=== PATIENT | male | born 1930 | race Caucasian/White ===

== ENCOUNTER 2017-04-22 07:00 | Inpatient (IN) ==
--- NOTE | 2017-04-15 08:19 | Cardiothoracic History & Phys ---
History of Present Illness Chief complaint: Weakness and shortness of breath History of present illness: Mr. Pérez is a 86 year old male who has known aortic valvular stenosis. He has been followed for some time by Dr. Wise and Dr. Wise is noted increasing symptoms of shortness of breath and decreasing exercise tolerance. He suspected that he was experiencing a worsening of his aortic stenosis and advised the patient to have cardiac catheterization. This was performed and revealed critical aortic stenosis with no significant occlusive coronary disease except in the distal right coronary artery in an area probably not suitable for bypass in this patient. Patient was recommended and referred for aortic valve replacement. He is to be admitted to the hospital 04/22/2017 for surgery 04/23/2017. Past medical history is significant for history of chronic atrial fibrillation and hypothyroidism. He also carries a diagnosis of obstructive sleep apnea. He has had previous appendectomy and lumbar surgery as well as a cholecystectomy and an arthroscopy of the knee. He has had cataract surgery and carpal tunnel repair. Family history is significant for history of cancer in his father and his mother has had diabetes type 2. Social history is significant in that the patient is a former smoker but quit smoking over 40 years ago. Review of systems is noncontributory to the present illness. Physical examination: Patient is a well-nourished white man who does appear to be chronically ill. Examination of head eyes ears nose and throat show the pupils are equal react to light and extraocular motions are intact. Examination of the oropharynx is benign. Examination of the neck shows bilateral transmitted bruits but there are no masses or thyromegaly. Examination of the chest is clear to percussion and auscultation. Examination of the heart reveals a harsh systolic murmur heard best along the left sternal border. Examination the abdomen is soft and nontender there are no masses or organomegaly. Termination extremities shows no cyanosis or edema. Neurological examination is grossly intact. Assessment: Severe aortic valvular stenosis and an 86-year-old man. Patient is in chronic atrial fibrillation. Plan: Aortic valve replacement with a bioprosthesis 04/23/2017. Home Medications Medication Instructions Recorded Confirmed Type Levothyroxine Tab [Synthroid Tab] 100 mcg PO DAILY@0700 04/26/15 03/16/17 History Warfarin [Coumadin] 5 mg PO DAILY@1800 04/26/15 03/16/17 History dilTIAZem HCl [Diltiazem ER (24 0.5 tablet PO BID 04/26/15 03/16/17 History hr)] Atorvastatin [Lipitor] 20 mg PO BEDTIME #30 tablet 04/30/15 03/16/17 Rx Bumetanide Tab [Bumex Tab] 0.5 mg PO DAILY 03/16/17 03/16/17 History Clopidogrel [Plavix] 75 mg PO DAILY 03/16/17 03/16/17 History Pantoprazole Tab [Protonix Tab] 40 mg PO DAILY #30 tablet 03/16/17 Rx Allergies Allergy/AdvReac Type Severity Reaction Status Date / Time No Known Allergies Allergy Unverified 04/26/15 10:10 Medical,Surgical,& Family Hx - Medical History Cardio: History of: Cardiac Dysrhythmia (a fib), Hypertension, Valvular Heart Disease Neurology: History of: Cerebrovascular Accident (embolus from A. fib. No residual symptoms.) No history of: Seizures Endocrine: History of: Diabetes Mellitus (NIDDM), Dyslipidemia, Thyroid Disorder Respiratory: History of: Obstructive Sleep Apnea (WEARS CPAP) Musculoskeletal: History of: Back/Neck Problems (BACK SURGERY) - Surgical History Cardiac Surgeries: Sugical HX of: Cardiac Catheterization (approximately 12 years ago. Was negative per patient) Abdominal Surgeries: Surgical HX of: Appendectomy, Cholecystectomy, Colonoscopy , EGD Orthopedic Surgeries: Surgical HX of;: Orthopedic Surgery (KNEE SCOPE), Spinal Surgery (TUMOR) - Family History Family History: Reports;: Family Cancer (BROTHER-LUNG), Family Diabetes (SISTER) , Family Heart Disease (MOTHER) Denies;: Family Anesthesia Reaction, Family Psychiatric Problems, Family Stroke - Social History Smoking Status: Former smoker
[~2017-04-22 07:00] MED LIST: DEXTROSE 50% 25 GM/50 ML VIAL IV PRN; GLUCAGON 1 MG VIAL IM PRN
[2017-04-22] MEDS ORDERED: GLUCAGON 1 MG VIAL IM PRN (08:19)
[2017-04-22] MEDS ORDERED: DEXTROSE 50% 25 GM/50 ML SYRINGE IV PRN (08:19)
[2017-04-22] MEDS: LEVOTHYROXINE 100 MCG TABLET PO SCH (09:50)
--- NOTE | 2017-04-22 10:15 | XRay Report ---
Exam: XR chest 2V Date: 04/22/2017 8:26 AM Indication: Coronary artery disease Comparison: 03/16/2017 Technical: PA lateral Findings: Mild cardiac prominence. Degenerative change present thoracic spine. Surgical clips present in the right upper quadrant. Underlying mild hyperinflation. No pneumothorax. Mediastinum is intact. No acute consolidating infiltrates or effusions present Impression: 1. Mild cardiac enlargement with ASVD 2. Previous cholecystectomy 3. No obvious consolidating infiltrates or effusions PROCEDURE INTERPRETED AT [facility] DEPARTMENT OF RADIOLOGY Final Report Signed by: Dr. Arun Christy
[2017-04-22 10:17] LABS: Basophils # 0.1 10*3/uL (0.0-0.2); Eosinophils # 0.1 10*3/uL (0.0-0.87); Eosinophils % 2.1 % (0.00-10.9); Hematocrit 46.5 VOL% (42.0-52.0); Hemoglobin 16.1 GM/DL (14.0-18.0); Immature Granulocytes % 0.2 %; Immature Granulocytes Absolute 0.01 #; Lymphocytes # 0.9 10*3/uL (1.4-4.0); Lymphocytes % 17.9 % (21.2-54.2); Mean Corpuscular HGB Conc 34.6 GM/DL (32-36); Mean Corpuscular Hemoglobin 32 PG (27-34); Mean Corpuscular Volume 91.5 FL (87-102); Mean Platelet Volume 11.5 FL (9.6-12.0); Monocytes # 0.4 10*3/uL (0.11-0.8); Monocytes % 7.3 % (1.7-12.7); Neutrophils # 3.7 10*3/uL (1.4-7.4); Neutrophils % 71.5 % (38.7-73.9); Platelet Count 151 T/CUMM (130-400); Red Blood Count 5.08 MC/CUMM (3.8-5.5); Red Cell Distribution Width 12.8 % (9.3-17.3); White Blood Count 5.2 T/CUMM (4-12)
--- NOTE | 2017-04-22 10:34 | EKG Report ---
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
[2017-04-22 10:48] LABS: Albumin 4.2 G/DL (3.4-5.0); Bilirubin,Total 0.8 MG/DL (0.2-1.0); Calcium 9.3 MG/DL (8.5-10.1); Osmolality,Calculated 284.1 MOS/KG (273-304); Potassium 4.4 MMOL/L (3.5-5.1); Total Protein 7.2 G/DL (6.4-8.3)
[2017-04-22] MEDS: BUMETANIDE 1 MG TABLET PO SCH (13:00)
[2017-04-22] MEDS: PANTOPRAZOLE 40 MG TABLET PO SCH (13:01)
[2017-04-22] MEDS: CHLORHEXIDINE 4% SOLN 118 ML BOTTLE TOP SCH ×2 (15:32→21:02)
[2017-04-22] MEDS ORDERED: ATORVASTATIN 20 MG TABLET PO SCH (21:00)
[2017-04-22] MEDS: CHLORHEXIDINE 0.12% ORAL RINSE 60 ML BOTTLE SWISH/SPIT SCH (21:07)
[2017-04-22 23:55] LABS: INR 1.1; PT Patient Result 11.2 SECS; Partial Thromboplastin Time 28.7 SECS (0-40)
[2017-04-23] MEDS ORDERED: FAMOTIDINE 20 MG TABLET PO STA (05:42)
[2017-04-23] MEDS ORDERED: LORazepam 1 MG TABLET PO STA (05:43)
[2017-04-23] MEDS ORDERED: FAMOTIDINE 20 MG TABLET ONE (05:45)
[2017-04-23] MEDS ORDERED: CEFUROXIME INJ 1,500 MG in SODIUM CHLORIDE 0.9% 100 ML IV ONE (06:00)
[2017-04-23] MEDS ORDERED: VANCOMYCIN 1,000 MG VIAL ONE ×3 (06:01→11:19)
[2017-04-23] MEDS ORDERED: PAPAVERINE 60 MG/2 ML VIAL ONE (06:01)
[2017-04-23 07:28] LABS: ABG Base Excess -0.4 MMOL/L (-2.5-2.5); ABG HCO3 24.1 MMOL/L (20-26); ABG Oxygen Saturation 99.6 % (95-100); ABG PCO2 36.7 MM HG (35-48); ABG PH 7.417 (7.35-7.45); ABG TCO2 20.3 MMOL/L (23-27); Glucose Heart Surgery 126 MG/DL (74-106); Hematocrit Heart Surgery 43.5 PERCENT (42-52); Hemoglobin Heart Surgery 14.2 G/DL (14.0-18.0); Ionized Calcium Arterial 1.13 MMOL/L (1.21-1.46); PCO2 Patient Temp Arterial 36.7 MMHG; PH Patient Temp Arterial 7.417; Patient Temperature 37 CELCIUS; Potassium Heart/CVR 3.6 MMOL/L (3.5-5.1); Sodium Heart/CVR 141 MMOL/L (135-145)
[2017-04-23 08:11] LABS: Apearance,Urine CLEAR (Clear); Bilirubin,Urine Negative (Negative); Blood, Urine Small mg/dL (Negative); Glucose,Urine (UA) Negative (Negative); Ketones,Urine Negative (Negative); Nitrite,Urine Negative (Negative); Protein,Urine Negative; RBC,Urine 3 /HPF (0-4); Squamous Epithelial Cell,Urine Occasional /HPF (0-10); Urine Color Yellow (Yellow); Urine Urobilinogen < 2.0 EU/DL (0.2-1.0); WBC,Urine 1 /HPF (0-6)
[2017-04-23 08:12] LABS: Hemoglobin Heart Surgery 10.2 G/DL (14.0-18.0); PCO2 Patient Temp Venous 30.3 MM HG; PH Patient Temp Venous 7.503; PO2 Patient Temp Venous 35.4 MM HG; Potassium Heart/CVR 4.1 MMOL/L (3.5-5.1); VBG Base Excess 0.4 MEQ/L (0-4); VBG HCO3 23.9 MEQ/L (24-28); VBG PCO2 34.6 MMHG (41-51); VBG PH 7.458; VBG PO2 43.8 MMHG (17-40)
--- NOTE | 2017-04-23 08:14 | Anesthesia Procedures ---
Anesthesia Procedures - Central Venous Insert Monitors Applied: pulse oximetry, EKG, BP cuff, oxygen via MSBT: pulse oximetry, EKG, BP cuff, oxygen via Procedure: after sterile technique was performed as outlined above, , ultrasound guidance was used to identify vessel, 1.5 % lidocaine used to numb skin, 18G introducer needle was passed into vessel under direct visualizatio, 16G introducer needle was passed into vessel under direct visualizatio, 7fr double lumen catheter was passed over guidewire without difficulty, triple lumen catheter was passed over guidewire without difficulty, catheter sutured into place and the ports flushed with NS/hepflush, sterlie dressing applied including the antibiotic disc, vital signs were stable throughout procedure, no apparent complications were noted, CXR to be obtained and read Ultrasound used: identify patency vessel, visualize needle entry to vessel Vein Cannulated: right internal juglar
--- NOTE | 2017-04-23 08:15 | Anesthesia Procedures ---
Anesthesia Procedures - Arterial Line Consent obtained arterial line: written consent Time out performed arterial line: Yes Size (Gauge): 20 Technique used arterial line: guide wire technique Post-Procedure: line sutured into place Patient tolerated procedure arterial line: well Site: right, radial (dr Nunn)
[2017-04-23 08:38] LABS: PCO2 Patient Temp Venous 27.4 MM HG; PH Patient Temp Venous 7.554; PO2 Patient Temp Venous 36.8 MM HG; Potassium Heart/CVR 3.9 MMOL/L (3.5-5.1); VBG Base Excess 1.7 MEQ/L (0-4); VBG HCO3 24.2 MEQ/L (24-28); VBG Oxygen Saturation 88.3 %; VBG PCO2 31.2 MMHG (41-51); VBG PH 7.508; VBG PO2 45.5 MMHG (17-40)
[2017-04-23] MEDS ORDERED: CARDIZEM 120 MG PO SCH (09:00)
[2017-04-23] MEDS ORDERED: NITROPRUSSIDE 50 MG/2 ML VIAL ONE (09:37)
[2017-04-23] MEDS ORDERED: INSULIN REGULAR DRIP 100 ML IV ONE (09:38)
[2017-04-23] MEDS ORDERED: ALBUMIN 5% 12.5 GM/250 ML VIAL IV ONE ×2 (09:38→17:07)
[2017-04-23] MEDS ORDERED: PHENYLEPHRINE DRIP 40 MG/250 ML PREMIX IV ONE (09:38)
[2017-04-23] MEDS ORDERED: POTASSIUM CHLORIDE RIDER 100 ML IV ONE (09:38)
[2017-04-23 09:40] LABS: ABG Base Excess 1.4 MMOL/L (-2.5-2.5); ABG HCO3 25.7 MMOL/L (20-26); ABG Oxygen Saturation 99.9 % (95-100); ABG PCO2 29.6 MM HG (35-48); ABG PH 7.512 (7.35-7.45); ABG TCO2 21.3 MMOL/L (23-27); Glucose Heart Surgery 208 MG/DL (74-106); Hematocrit Heart Surgery 32.3 PERCENT (42-52); Hemoglobin Heart Surgery 10.5 G/DL (14.0-18.0); Ionized Calcium Arterial 1.04 MMOL/L (1.21-1.46); PCO2 Patient Temp Arterial 29.6 MMHG; PH Patient Temp Arterial 7.512; Patient Temperature 37 CELCIUS; Potassium Heart/CVR 4.8 MMOL/L (3.5-5.1); Sodium Heart/CVR 137 MMOL/L (135-145)
[2017-04-23] MEDS ORDERED: MAGNESIUM SULFATE 1 GM/2 ML VIAL ONE (09:49)
[2017-04-23] MEDS ORDERED: HEPARIN 10,000 UNIT/10 ML VIAL ONE (09:49)
[2017-04-23] MEDS ORDERED: methylPREDNISolone SOD SUC 1,000 MG/8 ML VIAL ONE (09:49)
[2017-04-23] MEDS ORDERED: MANNITOL 12.5 GM/50 ML VIAL IV ONE (09:49)
[2017-04-23] MEDS ORDERED: ALBUMIN 25% 25 GM/100 ML VIAL IV ONE (09:49)
[2017-04-23] MEDS ORDERED: FUROSEMIDE 20 MG/2 ML VIAL ONE (09:49)
[2017-04-23] MEDS ORDERED: PROTAMINE SULFATE 250 MG/25 ML VIAL IV ONE (09:49)
[2017-04-23] MEDS ORDERED: POTASSIUM CHLORIDE 20 MEQ/10 ML VIAL ONE (09:49)
[2017-04-23] MEDS ORDERED: DEXTROSE 5% KCL 20 MEQ 20 MEQ/1,000 ML BAG IV ONE (09:49)
[2017-04-23] MEDS ORDERED: AMIODARONE 450 MG/9 ML VIAL IV ONE (10:03)
--- NOTE | 2017-04-23 10:27 | Anesthesia Post-Op ---
Anesthesia Post OP - Post Ansesthetic Evaluation Patient seen in post op: Yes Resp: within normal limits (pt remains sedate) CV: within normal limits Mental: within normal limits (pt remains sedate) Temp: within normal limits [id number]: within normal limits Nausea and Vomiting: within normal limits Pain: within normal limits
[2017-04-23] MEDS: LACTATED RINGERS 1,000 ML IV PRN ×6 (10:30→19:00)
[2017-04-23] MEDS ORDERED: SUFentanil 250 MCG/5 ML AMP ONE (10:30)
[2017-04-23] MEDS: SODIUM CHLORIDE 0.45% 1,000 ML IV SCH ×2 (10:30)
[2017-04-23] MEDS ORDERED: AMIODARONE INJ 450 MG in DEXTROSE 5% 241 ML IV SCH (10:30)
[2017-04-23] MEDS ORDERED: MIDAZOLAM 10 MG/2 ML VIAL ONE ×2 (10:31→12:41)
[2017-04-23] MEDS ORDERED: ePHEDrine 50 MG/ML AMP ONE (10:31)
[2017-04-23] MEDS ORDERED: PROTAMINE SULFATE 50 MG/5 ML VIAL IV ONE ×2 (10:36→10:45)
[2017-04-23] MEDS: DILTIAZEM HCL PO SCH ×2 (10:57→10:58)
[2017-04-23] MEDS: CHLORHEXIDINE 4% SOLN 118 ML BOTTLE TOP SCH (10:57)
[2017-04-23] MEDS: SODIUM CHLORIDE 0.9% 1,000 ML IV SCH (10:58)
[2017-04-23] MEDS: BUMETANIDE 1 MG TABLET PO SCH (10:58)
[2017-04-23] MEDS: LEVOTHYROXINE 100 MCG TABLET PO SCH (10:58)
[2017-04-23] MEDS: CHLORHEXIDINE 0.12% ORAL RINSE 60 ML BOTTLE SWISH/SPIT SCH ×2 (10:59→21:29)
[2017-04-23] MEDS: PANTOPRAZOLE 40 MG TABLET PO SCH (10:59)
[2017-04-23] MEDS ORDERED: MAGNESIUM SULF RIDER 2 GM in PREMIX 1 EACH IV PRN (11:07)
[2017-04-23] MEDS ORDERED: LACTATED RINGERS 250 ML IV PRN (11:07)
[2017-04-23] MEDS ORDERED: MIDAZOLAM 2 MG/2 ML VIAL IV PRN (11:07)
[2017-04-23] MEDS ORDERED: NITROPRUSSIDE 100 MG in DEXTROSE 5% 250 ML IV PRN (11:07)
[2017-04-23] MEDS ORDERED: CALCIUM CHLORIDE 1,000 MG/10 ML SYRINGE IV PRN (11:07)
[2017-04-23] MEDS ORDERED: ACETAMINOPHEN 650 MG SUPP RECTAL PRN (11:07)
[2017-04-23] MEDS ORDERED: VECURONIUM 10 MG VIAL IV PRN ×2 (11:07)
[2017-04-23] MEDS ORDERED: INSULIN REGULAR 100 UNIT/ML IV ONE (11:07)
[2017-04-23] MEDS ORDERED: ONDANSETRON 4 MG/2 ML VIAL IV PRN (11:07)
[2017-04-23] MEDS ORDERED: MORPHINE 10 MG/1 ML VIAL IV PRN (11:07)
[2017-04-23] MEDS ORDERED: MIDAZOLAM 10 MG/2 ML VIAL IV PRN (11:07)
[2017-04-23] MEDS ORDERED: DEXTROSE 50% 25 GM/50 ML SYRINGE IV PRN ×2 (11:07)
[2017-04-23] MEDS ORDERED: INSULIN REGULAR 100 UNIT/ML IV PRN (11:07)
[2017-04-23] MEDS ORDERED: PHENYLEPHRINE DRIP 40 MG/250 ML PREMIX IV PRN (11:07)
[2017-04-23] MEDS ORDERED: MAGNESIUM SULF RIDER 4 GM in PREMIX 1 EACH IV PRN (11:07)
[2017-04-23 11:12] LABS: ABG Base Excess 1.2 MMOL/L (-2.5-2.5); ABG HCO3 25.5 MMOL/L (20-26); ABG Oxygen Saturation 99.4 % (95-100); ABG PCO2 31.9 MM HG (35-48); ABG PH 7.485 (7.35-7.45); ABG TCO2 21.4 MMOL/L (23-27); Glucose Heart Surgery 211 MG/DL (74-106); Hematocrit Heart Surgery 34.7 PERCENT (42-52); Hemoglobin Heart Surgery 11.3 G/DL (14.0-18.0); Potassium Heart/CVR 3.8 MMOL/L (3.5-5.1)
[2017-04-23] MEDS ORDERED: TRANEXAMIC ACID 1,000 MG/10 ML VIAL IV ONE (11:27)
[2017-04-23 11:32] LABS: Albumin 3.7 G/DL (3.4-5.0); Bilirubin,Total 1.6 MG/DL (0.2-1.0); Calcium 8.8 MG/DL (8.5-10.1); Magnesium 2.4 MG/DL (1.8-2.4); Osmolality,Calculated 286.3 MOS/KG (273-304); Potassium 3.9 MMOL/L (3.5-5.1); Total Protein 5.9 G/DL (6.4-8.3)
[2017-04-23 11:44] LABS: ABG Base Excess 1.1 MMOL/L (-2.5-2.5); ABG HCO3 23.9 MMOL/L (20-26); ABG Oxygen Saturation 99.1 % (95-100); ABG PCO2 32.4 MM HG (35-48); ABG PH 7.486 (7.35-7.45); ABG TCO2 24.9 MMOL/L (23-27); Glucose Heart Surgery 197 MG/DL (74-106); Hemoglobin Heart Surgery 12.1 G/DL (14.0-18.0); Ionized Calcium Arterial 1.01 MMOL/L (1.21-1.46); PCO2 Patient Temp Arterial 32.4 MMHG; PH Patient Temp Arterial 7.486; Patient Temperature 37 CELCIUS; Potassium Heart/CVR 3.5 MMOL/L (3.5-5.1); Sodium Heart/CVR 138 MMOL/L (135-145)
[2017-04-23 11:55] LABS: CKMB % 4.5 %
[2017-04-23 12:04] LABS: Troponin I Only 2.47 NG/ML (0.00-0.045)
[2017-04-23 12:16] LABS: Basophils % 0.3 % (0.0-0.8); Eosinophils % 0.3 % (0.00-10.9); Hematocrit 31.6 VOL% (42.0-52.0); Immature Granulocytes Absolute 0.07 #; Lymphocytes # 0.5 10*3/uL (1.4-4.0); Lymphocytes % 6.4 % (21.2-54.2); Mean Corpuscular HGB Conc 34.8 GM/DL (32-36); Mean Corpuscular Hemoglobin 32 PG (27-34); Mean Corpuscular Volume 91.3 FL (87-102); Mean Platelet Volume 10.8 FL (9.6-12.0); Monocytes # 0.3 10*3/uL (0.11-0.8); Monocytes % 3.8 % (1.7-12.7); Neutrophils # 6.4 10*3/uL (1.4-7.4); Neutrophils % 88.2 % (38.7-73.9); Platelet Count 142 T/CUMM (130-400); Red Cell Distribution Width 12.8 % (9.3-17.3)
[2017-04-23 12:24] LABS: White Blood Count 7.3 T/CUMM (4-12)
[2017-04-23 12:25] LABS: Red Blood Count 3.46 MC/CUMM (3.8-5.5)
[2017-04-23 12:39] LABS: INR 1.2; PT Patient Result 13.1 SECS
[2017-04-23] MEDS ORDERED: SEVOFLURANE 1 UNIT/15 MINUTE INH ONE (12:40)
--- NOTE | 2017-04-23 12:41 | Operative Note ---
Date of procedure: 04/23/17 Post-op diagnosis: same (Postoperative hemorrhage) Procedure: Patient was brought to the operating room placed on the operating table in supine position. After satisfactory induction of general anesthesia the chest and abdomen were prepped and draped in sterile fashion. Previous sternotomy incision was reopened and the sternal wires were removed. The operative field was inspected for bleeding points and tumor found in the proximal aortotomy site. These were closed with mattress sutures of 4-0 Prolene. Following this the operative field was irrigated with saline and then the operative field was once again inspected for hemostasis and this was considered adequate the incision was closed in usual fashion with stainless steel wire the sternum 0 Monopril in the presternal fascia and 3-0 subcuticular Monocryl. 2 chest tubes were left in the anterior mediastinum and brought out through separate stab incisions. Sterile dressings were applied the patient was returned to recovery in satisfactory condition. Surgeon / Physician: Farhat Rodrigez Condition: stable Disposition: ICU Results - Labs CBC & BMP: 04/23/17 10:33 04/23/17 11:18 Discharge Plan - Discharge Medications No Action Warfarin [Coumadin] 5 mg PO DAILY@1800 Levothyroxine Tab [Synthroid Tab] 100 mcg PO DAILY@0700 Atorvastatin [Lipitor] 20 mg PO BEDTIME #30 tablet Clopidogrel [Plavix] 75 mg PO DAILY Bumetanide Tab [Bumex Tab] 0.5 mg PO DAILY dilTIAZem HCl [Cardizem LA] 60 mg PO BID Pantoprazole Tab [Protonix Tab] 40 mg PO DAILY #30 tablet - Follow Up or Referral - Forms/Instructions
[2017-04-23 12:53] LABS: ABG HCO3 24.4 MMOL/L (20-26); ABG Oxygen Saturation 99.3 % (95-100); ABG PCO2 29.9 MM HG (35-48); ABG PH 7.486 (7.35-7.45); ABG TCO2 20.1 MMOL/L (23-27); Glucose Heart Surgery 218 MG/DL (74-106); Hematocrit Heart Surgery 34.1 PERCENT (42-52); Potassium Heart/CVR 3.3 MMOL/L (3.5-5.1)
[2017-04-23] MEDS: POTASSIUM CHLORIDE RIDER 20 MEQ in PREMIX 1 EACH IV PRN ×7 (13:01→22:52)
[2017-04-23] MEDS: INSULIN REGULAR DRIP 100 ML IV SCH (13:01)
[2017-04-23] MEDS: KETOROLAC 15 MG/1 ML VIAL IV SCH ×3 (13:19→22:53)
[2017-04-23] MEDS: ALBUMIN 5% 12.5 GM in PREMIX 1 EACH IV PRN ×6 (14:08→17:31)
[2017-04-23 14:19] LABS: ABG Base Excess -0.1 MMOL/L (-2.5-2.5); ABG HCO3 24.3 MMOL/L (20-26); ABG Oxygen Saturation 99.4 % (95-100); ABG PCO2 29.5 MM HG (35-48); ABG TCO2 20.3 MMOL/L (23-27); Glucose Heart Surgery 198 MG/DL (74-106); Hematocrit Heart Surgery 31.2 PERCENT (42-52); Hemoglobin Heart Surgery 10.1 G/DL (14.0-18.0); Potassium Heart/CVR 3.7 MMOL/L (3.5-5.1)
--- NOTE | 2017-04-23 14:36 | Operative Note ---
Pre-op diagnosis: Aortic valvular stenosis Post-op diagnosis: same Procedure: Procedure: Aortic valve replacement with a 23 mm pericardial prosthesis. Findings: Patient is an 86-year-old man who has chronic atrial fibrillation who has developed decreasing exercise tolerance over the past year and a half. He was found to have significant aortic valvular stenosis which progressed during that period of time and he has been referred for aortic valve replacement. At the time of surgery a severely calcified aortic valve was encountered and removed and the valve was replaced with a 23 mm pericardial prosthesis. Patient tolerated procedure well and was returned to recovery in satisfactory condition. Procedure: Patient brought to the operating room placed on the operating table in supine position. After satisfactory induction of general anesthesia the chest abdomen and legs were prepped and draped in sterile fashion. Sternotomy incision was made and carried down to the level of the sternum which was divided and the heart was suspended in a pericardial cradle. Patient was prepared for cardiopulmonary bypass with systemic heparinization and cannulation of the ascending aorta and right atrium. Cardiopulmonary bypass was begun and the aorta was crossclamped and the heart arrested with cardioplegia solution injected into the aortic root. The aorta was opened through transverse aortotomy in the supravalvular position and aortic valve was exposed with the above-noted findings. The valve was removed and the annulus ringed with horizontal mattress sutures of 3-0 Ethibond. These were passed through the sewing ring of a 23 mm pericardial prosthesis which was lowered and tied into place. The incision was closed with 3-0 Prolene in the aorta. The aorta was unclamped reestablishing cardiac action and the patient was weaned from cardiopulmonary bypass without difficulty. Heparin effect was reversed with protamine and decannulation carried out with a defects in the ascending aorta and right atrium closed with 3-0 Prolene. The operative field was inspected for hemostasis and when this was considered adequate the incision was closed with interrupted stainless steel wire and the sternum and 0 Monopril in the presternal fascia. Skin was closed with 3-0 subcuticular Monocryl. 2 chest tubes were left in the anterior mediastinum and brought out through separate stab incisions. Sterile dressings were applied and the patient was returned to recovery in satisfactory condition. Anesthesia: MONIEA Surgeon / Physician: Farhat Rodrigez Estimated blood loss: other (Unable to determine because of cardiopulmonary bypass) Condition: stable Disposition: ICU Results - Labs CBC & BMP: 04/23/17 11:39 04/23/17 11:18 Discharge Plan - Discharge Medications No Action Warfarin [Coumadin] 5 mg PO DAILY@1800 Levothyroxine Tab [Synthroid Tab] 100 mcg PO DAILY@0700 Atorvastatin [Lipitor] 20 mg PO BEDTIME #30 tablet Clopidogrel [Plavix] 75 mg PO DAILY Bumetanide Tab [Bumex Tab] 0.5 mg PO DAILY dilTIAZem HCl [Cardizem LA] 60 mg PO BID Pantoprazole Tab [Protonix Tab] 40 mg PO DAILY #30 tablet - Follow Up or Referral - Forms/Instructions
--- NOTE | 2017-04-23 14:52 | XRay Report ---
Portable chest Date: 04/23/2017 Clinical history: Line placement Comparison: 04/22/2017 Technique: Portable AP sitting chest Findings: The heart is minimally enlarged with interval median sternotomy and cardiac valve replacement. Endotracheal tube, nasogastric tube, mediastinal chest tubes, right IJ CVP line, and right subclavian [place] catheter are in satisfactory position. No pneumothorax with minimal atelectasis. Impression: Status post median sternotomy and cardiac valve replacement. Progressive atelectasis in the lungs with no pneumothorax. The supportive devices are in satisfactory position. PROCEDURE INTERPRETED AT [facility] DEPARTMENT OF RADIOLOGY Final Report Signed by: Dr. Harika Watts
[2017-04-23] MEDS: DOBUTamine 500 MG/250 ML PREMIX IV SCH (15:16)
--- NOTE | 2017-04-23 15:40 | Anesthesia Post-Op ---
Anesthesia Post OP - Post Ansesthetic Evaluation Patient seen in post op: Yes Resp: within normal limits (pt remains ventilated) CV: within normal limits Mental: within normal limits (pt remains sedate) Temp: within normal limits [id number]: within normal limits Nausea and Vomiting: within normal limits Pain: within normal limits
[2017-04-23] MEDS: AMIODARONE INJ 450 MG in DEXTROSE 5% 241 ML IV SCH ×2 (16:06→22:06)
[2017-04-23 16:50] LABS: ABG Base Excess -1.6 MMOL/L (-2.5-2.5); ABG HCO3 23.1 MMOL/L (20-26); ABG Oxygen Saturation 98.6 % (95-100); ABG PCO2 32.9 MM HG (35-48); ABG PH 7.432 (7.35-7.45); ABG TCO2 19.7 MMOL/L (23-27); Glucose Heart Surgery 156 MG/DL (74-106); Hematocrit Heart Surgery 33.6 PERCENT (42-52); Hemoglobin Heart Surgery 10.9 G/DL (14.0-18.0); Potassium Heart/CVR 3.8 MMOL/L (3.5-5.1)
[2017-04-23] MEDS: POTASSIUM CHLORIDE RIDER 10 MEQ in PREMIX 1 EACH IV PRN ×2 (18:10→20:50)
[2017-04-23] MEDS: CEFUROXIME INJ 1,500 MG in SODIUM CHLORIDE 0.9% 100 ML IV SCH (18:11)
[2017-04-23 20:02] LABS: ABG HCO3 23.6 MMOL/L (20-26); ABG Oxygen Saturation 98.4 % (95-100); ABG PCO2 31.7 MM HG (35-48); ABG PH 7.455 (7.35-7.45); ABG TCO2 20.4 MMOL/L (23-27); Glucose Heart Surgery 116 MG/DL (74-106); Hematocrit Heart Surgery 28.6 PERCENT (42-52); Hemoglobin Heart Surgery 9.2 G/DL (14.0-18.0); Potassium Heart/CVR 3.9 MMOL/L (3.5-5.1)
[2017-04-23 21:02] LABS: CKMB % 3.8 %
[2017-04-23 21:24] LABS: Troponin I Only 3.75 NG/ML (0.00-0.045)
[2017-04-23 22:32] LABS: ABG HCO3 23.6 MMOL/L (20-26); ABG Oxygen Saturation 98.5 % (95-100); ABG PCO2 30.7 MM HG (35-48); ABG PH 7.465 (7.35-7.45); ABG TCO2 20.3 MMOL/L (23-27); Glucose Heart Surgery 100 MG/DL (74-106); Hematocrit Heart Surgery 28.1 PERCENT (42-52); Hemoglobin Heart Surgery 9.1 G/DL (14.0-18.0); Potassium Heart/CVR 4.2 MMOL/L (3.5-5.1)
[2017-04-23] MEDS ORDERED: FUROSEMIDE 40 MG/4 ML VIAL IV ONE (22:57)
[2017-04-23] MEDS: MORPHINE 2 MG/1 ML SYRINGE IV PRN (23:22)
[2017-04-24] MEDS: LACTATED RINGERS 1,000 ML IV PRN (03:00)
[2017-04-24 03:07] LABS: ABG Base Excess -1.1 MMOL/L (-2.5-2.5); ABG HCO3 21.2 MMOL/L (20-26); ABG Oxygen Saturation 96.7 % (95-100); ABG PCO2 28.1 MM HG (35-48); ABG PH 7.496 (7.35-7.45); ABG PO2 87.3 MM HG (80-95); ABG TCO2 22.1 MMOL/L (23-27); Glucose Heart Surgery 114 MG/DL (74-106); Hemoglobin Heart Surgery 10.8 G/DL (14.0-18.0); Potassium Heart/CVR 4.2 MMOL/L (3.5-5.1)
[2017-04-24 03:18] LABS: Basophils % 0.1 % (0.0-0.8); Hematocrit 28.8 VOL% (42.0-52.0); Hemoglobin 10.4 GM/DL (14.0-18.0); Immature Granulocytes % 0.8 %; Immature Granulocytes Absolute 0.09 #; Lymphocytes # 0.4 10*3/uL (1.4-4.0); Lymphocytes % 3.3 % (21.2-54.2); Mean Corpuscular HGB Conc 36.1 GM/DL (32-36); Mean Corpuscular Hemoglobin 31 PG (27-34); Mean Corpuscular Volume 86.5 FL (87-102); Mean Platelet Volume 11.6 FL (9.6-12.0); Monocytes # 0.2 10*3/uL (0.11-0.8); Neutrophils # 10.4 10*3/uL (1.4-7.4); Neutrophils % 93.8 % (38.7-73.9); Red Blood Count 3.33 MC/CUMM (3.8-5.5); White Blood Count 11.1 T/CUMM (4-12)
[2017-04-24 03:19] LABS: Platelet Count 101 T/CUMM (130-400)
[2017-04-24] MEDS: POTASSIUM CHLORIDE RIDER 20 MEQ in PREMIX 1 EACH IV PRN ×2 (03:19→07:39)
[2017-04-24 03:41] LABS: Band Neutrophils 6 % (0-10); Lymphocytes 4 % (20-55); Segmented Neutrophils 88 % (50-85)
[2017-04-24 03:43] LABS: Platelet Estimate Decreased; Total Cells Counted 100
[2017-04-24] MEDS: ALBUMIN 5% 12.5 GM in PREMIX 1 EACH IV PRN (03:50)
[2017-04-24 03:58] LABS: Albumin 3.8 G/DL (3.4-5.0); Bilirubin,Direct 0.22 MG/DL (0.0-0.20); Calcium 8.4 MG/DL (8.5-10.1); Magnesium 1.8 MG/DL (1.8-2.4); Osmolality,Calculated 282.3 MOS/KG (273-304); Potassium 4.4 MMOL/L (3.5-5.1); Total Protein 5.3 G/DL (6.4-8.3)
[2017-04-24 04:00] LABS: CKMB % 3.3 %
[2017-04-24 04:04] LABS: Troponin I Only 1.93 NG/ML (0.00-0.045)
[2017-04-24] MEDS: KETOROLAC 15 MG/1 ML VIAL IV SCH ×3 (05:00→16:37)
[2017-04-24] MEDS: NITROGLYCERIN DRIP 50 MG/250 ML BOTTLE IV SCH (06:07)
[2017-04-24] MEDS: CEFUROXIME INJ 1,500 MG in SODIUM CHLORIDE 0.9% 100 ML IV SCH ×2 (06:11→18:06)
[2017-04-24 07:26] LABS: ABG Base Excess -0.9 MMOL/L (-2.5-2.5); ABG HCO3 23.7 MMOL/L (20-26); ABG Oxygen Saturation 97.3 % (95-100); ABG PCO2 31.5 MM HG (35-48); ABG PH 7.459 (7.35-7.45); ABG PO2 83.9 MM HG (80-95); ABG TCO2 20.4 MMOL/L (23-27); Glucose Heart Surgery 126 MG/DL (74-106); Hematocrit Heart Surgery 29.3 PERCENT (42-52); Hemoglobin Heart Surgery 9.5 G/DL (14.0-18.0); Potassium Heart/CVR 4.4 MMOL/L (3.5-5.1)
--- NOTE | 2017-04-24 08:07 | EKG Report ---
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
--- NOTE | 2017-04-24 08:20 | XRay Report ---
XR chest 1V portable Indication: Airleak noted in chest tube Comparison: Chest x-ray dated April 23, 2017 Technique: Single frontal view of the chest. Findings: Lines and tubes appear grossly unchanged. Stable cardiomegaly status post sternotomy. No new focal consolidation or pneumothorax. Visualized osseous and surrounding soft tissue structures appear grossly unchanged. IMPRESSION: No adverse interval change. PROCEDURE INTERPRETED AT [facility] DEPARTMENT OF RADIOLOGY Final Report Signed by: Dr Alexx Villar
--- NOTE | 2017-04-24 08:50 | Cardiothoracic Progress Note ---
Cardiothoracic Subjective Interval history: Patient is intubated on the ventilator. He is beginning to awaken and opens his eyes to his name and will move all extremities but not to command at this point. Vital signs have been stable through the night and his cardiac output is 4 L/min this morning with minimal enzyme elevation consistent with postoperative day 1. Blood pressure and heart rate have been stable although he remains in atrial fibrillation. Arterial blood gases are satisfactory on the ventilator and will permit weaning when his level of wakefulness improves. Chest tube drainage is minimal but I am going to leave the chest tubes for now as long as he is still on the ventilator. Urine output has been good and his creatinine is 1.4 which is the same as preop. Overall his progress is satisfactory although he is weaning process may be somewhat slow and I have discussed with his the possibility that he may remain on the ventilator through the day and tonight and it may be tomorrow morning before he is ready to be extubated. Exam (Progress Note) - Constitutional Vitals: Period Temp Pulse Resp BP Sys/Wang Pulse Ox Last 24 Hr 93.9 F-98.4 F 60-107 10-36 84-194/36-106 97-100 Result/EKG - Labs CBC & BMP: 04/24/17 02:50 04/24/17 02:50 Labs: Laboratory Results - last 24 hr 04/22/17 04/23/17 04/23/17 10:03 09:37 09:42 WBC RBC Hgb Hct MCV MCH MCHC RDW Plt Count [employer] MPV Neut % (Auto) Lymph % (Auto) [place] % (Auto) Eos % (Auto) Baso % (Auto) Neut # (Auto) Lymph # (Auto) [place] # (Auto) Eos # (Auto) Baso # (Auto) Total Counted Immature Gran % Nucleated RBC % Immature Gran # Segmented Neutrophils Band Neutrophils Lymphocytes Monocytes Nucleated RBCs # Platelet Estimate Immature Plt Fraction INR PT Patient/Control Mix Circ Anticoag PTT Patient Temperature 37 ABG pH 7.512 H ABG pH at Pt Temp 7.512 ABG pCO2 29.6 L ABG pCO2 at Pt Temp 29.6 ABG pO2 427.0 H ABG pO2 at Pt Temp 427.0 ABG HCO3 25.7 ABG Total CO2 21.3 L ABG O2 Saturation 99.9 ABG Base Excess 1.4 ABG Sodium 137 Hemoglobin 10.5 L D Hematocrit 32.3 L Potassium 4.8 Glucose 208 H Ionized Calcium 1.04 L Sodium Chloride Carbon Dioxide Anion Gap BUN Creatinine GFR Calculation BUN/Creatinine Ratio Calculated Osmolality Calcium Magnesium Total Bilirubin Direct Bilirubin AST ALT Alkaline Phosphatase Total Creatine Kinase CK-MB (CK-2) CK and CKMB Interp Troponin I Total Protein Albumin Globulin Albumin/Globulin Ratio Blood Type A POSITIVE Antibody Screen Negative Crossmatch See Detail 04/23/17 04/23/17 04/23/17 10:33 10:33 11:12 WBC 7.3 D RBC 3.46 L D Hgb 11.0 L D Hct 31.6 L MCV 91.3 MCH 32 MCHC 34.8 RDW 12.8 Plt Count 142 MPV 10.8 Neut % (Auto) 88.2 H Lymph % (Auto) 6.4 L [place] % (Auto) 3.8 Eos % (Auto) 0.3 Baso % (Auto) 0.3 Neut # (Auto) 6.4 Lymph # (Auto) 0.5 L [place] # (Auto) 0.3 Eos # (Auto) 0.0 Baso # (Auto) 0.0 Total Counted Immature Gran % 1.0 Nucleated RBC % 0.0 Immature Gran # 0.07 Segmented Neutrophils Band Neutrophils Lymphocytes Monocytes Nucleated RBCs # 0.00 Platelet Estimate Immature Plt Fraction 0.0 INR 1.2 PT Patient/Control Mix 13.1 Circ Anticoag PTT 31.0 Patient Temperature ABG pH 7.485 H ABG pH at Pt Temp ABG pCO2 31.9 L ABG pCO2 at Pt Temp ABG pO2 171.0 H ABG pO2 at Pt Temp ABG HCO3 25.5 ABG Total CO2 21.4 L ABG O2 Saturation 99.4 ABG Base Excess 1.2 ABG Sodium Hemoglobin 11.3 L Hematocrit 34.7 L Potassium 3.8 Glucose 211 H Ionized Calcium Sodium Chloride Carbon Dioxide Anion Gap BUN Creatinine GFR Calculation BUN/Creatinine Ratio Calculated Osmolality Calcium Magnesium Total Bilirubin Direct Bilirubin AST ALT Alkaline Phosphatase Total Creatine Kinase CK-MB (CK-2) CK and CKMB Interp Troponin I Total Protein Albumin Globulin Albumin/Globulin Ratio Blood Type Antibody Screen Crossmatch 04/23/17 04/23/17 04/23/17 11:18 11:18 11:39 WBC RBC Hgb Hct MCV MCH MCHC RDW Plt Count [employer] MPV Neut % (Auto) Lymph % (Auto) [place] % (Auto) Eos % (Auto) Baso % (Auto) Neut # (Auto) Lymph # (Auto) [place] # (Auto) Eos # (Auto) Baso # (Auto) Total Counted Immature Gran % Nucleated RBC % Immature Gran # Segmented Neutrophils Band Neutrophils Lymphocytes Monocytes Nucleated RBCs # Platelet Estimate Immature Plt Fraction INR PT Patient/Control Mix Circ Anticoag PTT Patient Temperature ABG pH ABG pH at Pt Temp ABG pCO2 ABG pCO2 at Pt Temp ABG pO2 ABG pO2 at Pt Temp ABG HCO3 ABG Total CO2 ABG O2 Saturation ABG Base Excess ABG Sodium Hemoglobin Hematocrit Potassium 3.9 Glucose 203 H Ionized Calcium Sodium 141 Chloride 104 Carbon Dioxide 26 Anion Gap 14.9 BUN 13 Creatinine 1.30 GFR Calculation 55 BUN/Creatinine Ratio 10.00 Calculated Osmolality 286.3 Calcium 8.8 Magnesium 2.4 Total Bilirubin 1.60 H Direct Bilirubin AST 37 ALT 28 Alkaline Phosphatase 58 Total Creatine Kinase 352 H CK-MB (CK-2) 15.9 H CK and CKMB Interp 4.5 Troponin I 2.470 H Total Protein 5.9 L Albumin 3.7 Globulin 2.2 L Albumin/Globulin Ratio 1.6 Blood Type Antibody Screen Crossmatch 04/23/17 04/23/17 04/23/17 11:42 12:54 14:10 WBC RBC Hgb Hct MCV MCH MCHC RDW Plt Count MPV Neut % (Auto) Lymph % (Auto) [place] % (Auto) Eos % (Auto) Baso % (Auto) Neut # (Auto) Lymph # (Auto) [place] # (Auto) Eos # (Auto) Baso # (Auto) Total Counted Immature Gran % Nucleated RBC % Immature Gran # Segmented Neutrophils Band Neutrophils Lymphocytes Monocytes Nucleated RBCs # Platelet Estimate Immature Plt Fraction INR PT Patient/Control Mix Circ Anticoag PTT Patient Temperature 37 ABG pH 7.486 H 7.486 H 7.490 H ABG pH at Pt Temp 7.486 ABG pCO2 32.4 L 29.9 L 29.5 L ABG pCO2 at Pt Temp 32.4 ABG pO2 423.0 H 160.0 H 148.0 H ABG pO2 at Pt Temp 423.0 ABG HCO3 23.9 24.4 24.3 ABG Total CO2 24.9 20.1 L 20.3 L ABG O2 Saturation 99.1 99.3 99.4 ABG Base Excess 1.1 0.0 -0.1 ABG Sodium 138 Hemoglobin 12.1 L 11.0 L 10.1 L Hematocrit 36.0 L 34.1 L 31.2 L Potassium 3.5 3.3 L 3.7 Glucose 197 H 218 H 198 H Ionized Calcium 1.01 L Sodium Chloride Carbon Dioxide Anion Gap BUN Creatinine GFR Calculation BUN/Creatinine Ratio Calculated Osmolality Calcium Magnesium Total Bilirubin Direct Bilirubin AST ALT Alkaline Phosphatase Total Creatine Kinase CK-MB (CK-2) CK and CKMB Interp Troponin I Total Protein Albumin Globulin Albumin/Globulin Ratio Blood Type Antibody Screen Crossmatch 04/23/17 04/23/17 04/23/17 16:33 19:55 19:55 WBC RBC Hgb Hct MCV MCH MCHC RDW Plt Count MPV Neut % (Auto) Lymph % (Auto) [place] % (Auto) Eos % (Auto) Baso % (Auto) Neut # (Auto) Lymph # (Auto) [place] # (Auto) Eos # (Auto) Baso # (Auto) Total Counted Immature Gran % Nucleated RBC % Immature Gran # Segmented Neutrophils Band Neutrophils Lymphocytes Monocytes Nucleated RBCs # Platelet Estimate Immature Plt Fraction INR PT Patient/Control Mix Circ Anticoag PTT Patient Temperature ABG pH 7.432 7.455 H ABG pH at Pt Temp ABG pCO2 32.9 L 31.7 L ABG pCO2 at Pt Temp ABG pO2 110.0 H 101.0 H ABG pO2 at Pt Temp ABG HCO3 23.1 23.6 ABG Total CO2 19.7 L 20.4 L ABG O2 Saturation 98.6 98.4 ABG Base Excess -1.6 -1.0 ABG Sodium Hemoglobin 10.9 L 9.2 L Hematocrit 33.6 L 28.6 L Potassium 3.8 3.9 Glucose 156 H 116 H Ionized Calcium Sodium Chloride Carbon Dioxide Anion Gap BUN Creatinine GFR Calculation BUN/Creatinine Ratio Calculated Osmolality Calcium Magnesium Total Bilirubin Direct Bilirubin AST ALT Alkaline Phosphatase Total Creatine Kinase 312 H CK-MB (CK-2) 12.0 H CK and CKMB Interp 3.8 Troponin I 3.750 H D Total Protein Albumin Globulin Albumin/Globulin Ratio Blood Type Antibody Screen Crossmatch 04/23/17 04/24/17 04/24/17 22:25 02:50 02:50 WBC 11.1 D RBC 3.33 L Hgb 10.4 L Hct 28.8 L MCV 86.5 L MCH 31 MCHC 36.1 H RDW 14.0 Plt Count 101 L D MPV 11.6 Neut % (Auto) 93.8 H Lymph % (Auto) 3.3 L Cloud % (Auto) 2.0 Eos % (Auto) 0.0 Baso % (Auto) 0.1 Neut # (Auto) 10.4 H Lymph # (Auto) 0.4 L [place] # (Auto) 0.2 Eos # (Auto) 0.0 Baso # (Auto) 0.0 Total Counted 100 Immature Gran % 0.8 Nucleated RBC % 0.0 Immature Gran # 0.09 Segmented Neutrophils 88 H Band Neutrophils 6 Lymphocytes 4 L Monocytes 2 Nucleated RBCs # 0.00 Platelet Estimate Decreased Immature Plt Fraction 7.2 H INR PT Patient/Control Mix Circ Anticoag PTT Patient Temperature ABG pH 7.465 H ABG pH at Pt Temp ABG pCO2 30.7 L ABG pCO2 at Pt Temp ABG pO2 101.0 H ABG pO2 at Pt Temp ABG HCO3 23.6 ABG Total CO2 20.3 L ABG O2 Saturation 98.5 ABG Base Excess -1.0 ABG Sodium Hemoglobin 9.1 L Hematocrit 28.1 L Potassium 4.2 Glucose 100 Ionized Calcium Sodium Chloride Carbon Dioxide Anion Gap BUN Creatinine GFR Calculation BUN/Creatinine Ratio Calculated Osmolality Calcium Magnesium Total Bilirubin Direct Bilirubin AST ALT Alkaline Phosphatase Total Creatine Kinase 266 CK-MB (CK-2) 8.9 H CK and CKMB Interp 3.3 Troponin I 1.930 H D Total Protein Albumin Globulin Albumin/Globulin Ratio Blood Type Antibody Screen Crossmatch 04/24/17 04/24/17 04/24/17 02:50 02:50 07:13 WBC RBC Hgb Hct MCV MCH MCHC RDW Plt Count MPV Neut % (Auto) Lymph % (Auto) [place] % (Auto) Eos % (Auto) Baso % (Auto) Neut # (Auto) Lymph # (Auto) [place] # (Auto) Eos # (Auto) Baso # (Auto) Total Counted Immature Gran % Nucleated RBC % Immature Gran # Segmented Neutrophils Band Neutrophils Lymphocytes Monocytes Nucleated RBCs # Platelet Estimate Immature Plt Fraction INR PT Patient/Control Mix Circ Anticoag PTT Patient Temperature ABG pH 7.496 H 7.459 H ABG pH at Pt Temp ABG pCO2 28.1 L 31.5 L ABG pCO2 at Pt Temp ABG pO2 87.3 83.9 ABG pO2 at Pt Temp ABG HCO3 21.2 23.7 ABG Total CO2 22.1 L 20.4 L ABG O2 Saturation 96.7 97.3 ABG Base Excess -1.1 -0.9 ABG Sodium Hemoglobin 10.8 L 9.5 L Hematocrit 32.0 L 29.3 L Potassium 4.4 4.2 4.4 Glucose 118 H 114 H 126 H Ionized Calcium Sodium 141 Chloride 109 H Carbon Dioxide 26 Anion Gap 10.4 BUN 15 Creatinine 1.40 H GFR Calculation 50 BUN/Creatinine Ratio 10.00 Calculated Osmolality 282.3 Calcium 8.4 L Magnesium 1.8 Total Bilirubin 2.00 H Direct Bilirubin 0.220 H AST 40 H ALT 35 Alkaline Phosphatase 36 L Total Creatine Kinase CK-MB (CK-2) CK and CKMB Interp Troponin I Total Protein 5.3 L Albumin 3.8 Globulin 1.5 L Albumin/Globulin Ratio 2.5 H Blood Type Antibody Screen Crossmatch Quality Measures - VTE Contraindication to Pharmacological VTE Prophylaxis: High Risk of Bleeding - Stroke Symptom Onset Unknown: No
[2017-04-24] MEDS: DILTIAZEM 60 MG TABLET PO SCH ×2 (09:04→20:13)
[2017-04-24] MEDS: CHLORHEXIDINE 0.12% ORAL RINSE 60 ML BOTTLE SWISH/SPIT SCH ×2 (09:05→20:13)
[2017-04-24 09:53] LABS: ABG Base Excess -1.1 MMOL/L (-2.5-2.5); ABG HCO3 23.5 MMOL/L (20-26); ABG Oxygen Saturation 97.2 % (95-100); ABG PCO2 30.7 MM HG (35-48); ABG PH 7.464 (7.35-7.45); ABG PO2 82.5 MM HG (80-95); ABG TCO2 20.1 MMOL/L (23-27); Glucose Heart Surgery 135 MG/DL (74-106); Hematocrit Heart Surgery 29.4 PERCENT (42-52); Hemoglobin Heart Surgery 9.5 G/DL (14.0-18.0); Potassium Heart/CVR 4.8 MMOL/L (3.5-5.1)
[2017-04-24] MEDS: AMIODARONE INJ 450 MG in DEXTROSE 5% 241 ML IV SCH (09:53)
[2017-04-24] MEDS ORDERED: FUROSEMIDE 40 MG/4 ML VIAL IV ONE ×2 (10:28→18:37)
[2017-04-24] MEDS: INSULIN REGULAR DRIP 100 ML IV SCH (11:35)
[2017-04-24 13:06] LABS: ABG Base Excess -2.7 MMOL/L (-2.5-2.5); ABG HCO3 22.2 MMOL/L (20-26); ABG PCO2 34.5 MM HG (35-48); ABG PH 7.402 (7.35-7.45); ABG TCO2 19.3 MMOL/L (23-27); Glucose Heart Surgery 167 MG/DL (74-106); Hematocrit Heart Surgery 33.2 PERCENT (42-52); Hemoglobin Heart Surgery 10.8 G/DL (14.0-18.0); Potassium Heart/CVR 4.9 MMOL/L (3.5-5.1)
[2017-04-24] MEDS: INSULIN REGULAR 100 UNIT/ML SUBCUT SCH ×3 (13:18→20:12)
[2017-04-24 14:26] LABS: ABG Base Excess -2.4 MMOL/L (-2.5-2.5); ABG HCO3 22.4 MMOL/L (20-26); ABG Oxygen Saturation 97.6 % (95-100); ABG PCO2 34.3 MM HG (35-48); ABG PH 7.409 (7.35-7.45); ABG PO2 94.2 MM HG (80-95); ABG TCO2 19.5 MMOL/L (23-27); Glucose Heart Surgery 175 MG/DL (74-106); Hematocrit Heart Surgery 33.2 PERCENT (42-52); Hemoglobin Heart Surgery 10.8 G/DL (14.0-18.0); Potassium Heart/CVR 4.9 MMOL/L (3.5-5.1)
[2017-04-24 16:14] LABS: ABG Base Excess -1.7 MMOL/L (-2.5-2.5); ABG HCO3 22.3 MMOL/L (20-26); ABG Oxygen Saturation 96.3 % (95-100); ABG PCO2 35.4 MM HG (35-48); ABG PH 7.418 (7.35-7.45); ABG PO2 84.8 MM HG (80-95); ABG TCO2 23.4 MMOL/L (23-27); Glucose Heart Surgery 160 MG/DL (74-106); Potassium Heart/CVR 4.7 MMOL/L (3.5-5.1)
[2017-04-24] MEDS: POTASSIUM CHLORIDE RIDER 10 MEQ in PREMIX 1 EACH IV PRN (16:36)
[2017-04-24] MEDS: DOBUTamine 500 MG/250 ML PREMIX IV SCH (23:37)
[2017-04-24] MEDS: SODIUM CHLORIDE 0.45% 1,000 ML IV SCH ×2 (23:37)
[2017-04-25] MEDS: INSULIN REGULAR 100 UNIT/ML SUBCUT SCH ×4 (00:15→12:16)
[2017-04-25] MEDS: MORPHINE 2 MG/1 ML SYRINGE IV PRN (02:18)
[2017-04-25 04:16] LABS: Basophils % 0.1 % (0.0-0.8); Hemoglobin 10.5 GM/DL (14.0-18.0); Immature Granulocytes % 1.6 %; Immature Granulocytes Absolute 0.22 #; Lymphocytes # 0.5 10*3/uL (1.4-4.0); Lymphocytes % 3.5 % (21.2-54.2); Mean Corpuscular Hemoglobin 31 PG (27-34); Mean Corpuscular Volume 88.8 FL (87-102); Mean Platelet Volume 11.7 FL (9.6-12.0); Monocytes # 0.7 10*3/uL (0.11-0.8); Monocytes % 5.1 % (1.7-12.7); Neutrophils # 12.3 10*3/uL (1.4-7.4); Neutrophils % 89.7 % (38.7-73.9); Red Blood Count 3.38 MC/CUMM (3.8-5.5); Red Cell Distribution Width 14.9 % (9.3-17.3); White Blood Count 13.7 T/CUMM (4-12)
[2017-04-25 04:18] LABS: Platelet Count 87 T/CUMM (130-400)
[2017-04-25 04:50] LABS: Eosinophils 1 % (0-10); Lymphocytes 4 % (20-55); Platelet Estimate Decreased; Segmented Neutrophils 91 % (50-85); Total Cells Counted 100
[2017-04-25 04:51] LABS: Hypochromasia 2+
[2017-04-25 04:53] LABS: Albumin 3.6 G/DL (3.4-5.0); Bilirubin,Direct 0.32 MG/DL (0.0-0.20); Bilirubin,Total 0.9 MG/DL (0.2-1.0); Calcium 8.2 MG/DL (8.5-10.1); Magnesium 2.5 MG/DL (1.8-2.4); Osmolality,Calculated 288.3 MOS/KG (273-304); Potassium 4.5 MMOL/L (3.5-5.1); Total Protein 5.5 G/DL (6.4-8.3)
--- NOTE | 2017-04-25 06:24 | Cardiothoracic Progress Note ---
Cardiothoracic Subjective Interval history: Patient is considerably more awake this morning. He remains somewhat confused although he is oriented as to place and he did recognize me although he does not clearly remember anything about having surgery. Vital signs have been stable through the night and he has been breathing comfortably and I am going to discontinue his dobutamine and hopefully this will allow his systolic pressure to come down a little bit. Overall he seems to be making good progress and I think his neurological status will come around give him a little more time. He clearly moves all extremities to command and has excellent strength. I think his mentation will clear given a little time away from surgery and his anesthetic drugs. We will continue to watch in ICU at least this morning but he may be ready to go to telemetry later today. Exam (Progress Note) - Constitutional Vitals: Period Temp Pulse Resp BP Sys/Wang Pulse Ox Last 24 Hr 97.3 F-98.3 F 67-111 10-19 85-186/41-79 96-99 Result/EKG - Labs CBC & BMP: 04/25/17 04:05 04/25/17 04:05 Labs: Laboratory Results - last 24 hr 04/22/17 04/23/17 04/23/17 10:03 15:26 18:15 WBC RBC Hgb Hct MCV MCH MCHC RDW Plt Count MPV Neut % (Auto) Lymph % (Auto) [place] % (Auto) Eos % (Auto) Baso % (Auto) Neut # (Auto) Lymph # (Auto) [place] # (Auto) Eos # (Auto) Baso # (Auto) Total Counted Immature Gran % Nucleated RBC % Immature Gran # Segmented Neutrophils Lymphocytes Monocytes Eosinophils Nucleated RBCs # Platelet Estimate Immature Plt Fraction Hypochromasia ABG pH ABG pCO2 ABG pO2 ABG HCO3 ABG Total CO2 ABG O2 Saturation ABG Base Excess Hemoglobin Hematocrit Potassium Glucose Sodium Chloride Carbon Dioxide Anion Gap BUN Creatinine GFR Calculation BUN/Creatinine Ratio POC Glucose 198 H < 20 L* Calculated Osmolality Calcium Magnesium Total Bilirubin Direct Bilirubin AST ALT Alkaline Phosphatase Total Protein Albumin Globulin Albumin/Globulin Ratio Blood Type A POSITIVE Antibody Screen Negative Crossmatch See Detail 04/23/17 04/23/17 04/23/17 18:17 18:58 20:58 WBC RBC Hgb Hct MCV MCH MCHC RDW Plt Count MPV Neut % (Auto) Lymph % (Auto) [place] % (Auto) Eos % (Auto) Baso % (Auto) Neut # (Auto) Lymph # (Auto) [place] # (Auto) Eos # (Auto) Baso # (Auto) Total Counted Immature Gran % Nucleated RBC % Immature Gran # Segmented Neutrophils Lymphocytes Monocytes Eosinophils Nucleated RBCs # Platelet Estimate Immature Plt Fraction Hypochromasia ABG pH ABG pCO2 ABG pO2 ABG HCO3 ABG Total CO2 ABG O2 Saturation ABG Base Excess Hemoglobin Hematocrit Potassium Glucose Sodium Chloride Carbon Dioxide Anion Gap BUN Creatinine GFR Calculation BUN/Creatinine Ratio POC Glucose 120 H 142 H 102 Calculated Osmolality Calcium Magnesium Total Bilirubin Direct Bilirubin AST ALT Alkaline Phosphatase Total Protein Albumin Globulin Albumin/Globulin Ratio Blood Type Antibody Screen Crossmatch 04/23/17 04/23/17 04/24/17 22:02 23:00 00:08 WBC RBC Hgb Hct MCV MCH MCHC RDW Plt Count MPV Neut % (Auto) Lymph % (Auto) [place] % (Auto) Eos % (Auto) Baso % (Auto) Neut # (Auto) Lymph # (Auto) [place] # (Auto) Eos # (Auto) Baso # (Auto) Total Counted Immature Gran % Nucleated RBC % Immature Gran # Segmented Neutrophils Lymphocytes Monocytes Eosinophils Nucleated RBCs # Platelet Estimate Immature Plt Fraction Hypochromasia ABG pH ABG pCO2 ABG pO2 ABG HCO3 ABG Total CO2 ABG O2 Saturation ABG Base Excess Hemoglobin Hematocrit Potassium Glucose Sodium Chloride Carbon Dioxide Anion Gap BUN Creatinine GFR Calculation BUN/Creatinine Ratio POC Glucose 122 H 101 111 H Calculated Osmolality Calcium Magnesium Total Bilirubin Direct Bilirubin AST ALT Alkaline Phosphatase Total Protein Albumin Globulin Albumin/Globulin Ratio Blood Type Antibody Screen Crossmatch 04/24/17 04/24/17 04/24/17 01:01 02:00 02:54 WBC RBC Hgb Hct MCV MCH MCHC RDW Plt Count MPV Neut % (Auto) Lymph % (Auto) [place] % (Auto) Eos % (Auto) Baso % (Auto) Neut # (Auto) Lymph # (Auto) [place] # (Auto) Eos # (Auto) Baso # (Auto) Total Counted Immature Gran % Nucleated RBC % Immature Gran # Segmented Neutrophils Lymphocytes Monocytes Eosinophils Nucleated RBCs # Platelet Estimate Immature Plt Fraction Hypochromasia ABG pH ABG pCO2 ABG pO2 ABG HCO3 ABG Total CO2 ABG O2 Saturation ABG Base Excess Hemoglobin Hematocrit Potassium Glucose Sodium Chloride Carbon Dioxide Anion Gap BUN Creatinine GFR Calculation BUN/Creatinine Ratio POC Glucose 127 H 134 H 123 H Calculated Osmolality Calcium Magnesium Total Bilirubin Direct Bilirubin AST ALT Alkaline Phosphatase Total Protein Albumin Globulin Albumin/Globulin Ratio Blood Type Antibody Screen Crossmatch 04/24/17 04/24/17 04/24/17 04:08 05:07 06:14 WBC RBC Hgb Hct MCV MCH MCHC RDW Plt Count MPV Neut % (Auto) Lymph % (Auto) [place] % (Auto) Eos % (Auto) Baso % (Auto) Neut # (Auto) Lymph # (Auto) [place] # (Auto) Eos # (Auto) Baso # (Auto) Total Counted Immature Gran % Nucleated RBC % Immature Gran # Segmented Neutrophils Lymphocytes Monocytes Eosinophils Nucleated RBCs # Platelet Estimate Immature Plt Fraction Hypochromasia ABG pH ABG pCO2 ABG pO2 ABG HCO3 ABG Total CO2 ABG O2 Saturation ABG Base Excess Hemoglobin Hematocrit Potassium Glucose Sodium Chloride Carbon Dioxide Anion Gap BUN Creatinine GFR Calculation BUN/Creatinine Ratio POC Glucose 130 H 124 H 119 H Calculated Osmolality Calcium Magnesium Total Bilirubin Direct Bilirubin AST ALT Alkaline Phosphatase Total Protein Albumin Globulin Albumin/Globulin Ratio Blood Type Antibody Screen Crossmatch 04/24/17 04/24/17 04/24/17 07:13 09:45 13:00 WBC RBC Hgb Hct MCV MCH MCHC RDW Plt Count MPV Neut % (Auto) Lymph % (Auto) [place] % (Auto) Eos % (Auto) Baso % (Auto) Neut # (Auto) Lymph # (Auto) [place] # (Auto) Eos # (Auto) Baso # (Auto) Total Counted Immature Gran % Nucleated RBC % Immature Gran # Segmented Neutrophils Lymphocytes Monocytes Eosinophils Nucleated RBCs # Platelet Estimate Immature Plt Fraction Hypochromasia ABG pH 7.459 H 7.464 H 7.402 ABG pCO2 31.5 L 30.7 L 34.5 L ABG pO2 83.9 82.5 103.0 H ABG HCO3 23.7 23.5 22.2 ABG Total CO2 20.4 L 20.1 L 19.3 L ABG O2 Saturation 97.3 97.2 98.0 ABG Base Excess -0.9 -1.1 -2.7 L Hemoglobin 9.5 L 9.5 L 10.8 L Hematocrit 29.3 L 29.4 L 33.2 L Potassium 4.4 4.8 4.9 Glucose 126 H 135 H 167 H Sodium Chloride Carbon Dioxide Anion Gap BUN Creatinine GFR Calculation BUN/Creatinine Ratio POC Glucose Calculated Osmolality Calcium Magnesium Total Bilirubin Direct Bilirubin AST ALT Alkaline Phosphatase Total Protein Albumin Globulin Albumin/Globulin Ratio Blood Type Antibody Screen Crossmatch 04/24/17 04/24/17 04/24/17 14:20 16:05 23:17 WBC RBC Hgb Hct MCV MCH MCHC RDW Plt Count MPV Neut % (Auto) Lymph % (Auto) [place] % (Auto) Eos % (Auto) Baso % (Auto) Neut # (Auto) Lymph # (Auto) [place] # (Auto) Eos # (Auto) Baso # (Auto) Total Counted Immature Gran % Nucleated RBC % Immature Gran # Segmented Neutrophils Lymphocytes Monocytes Eosinophils Nucleated RBCs # Platelet Estimate Immature Plt Fraction Hypochromasia ABG pH 7.409 7.418 ABG pCO2 34.3 L 35.4 ABG pO2 94.2 84.8 ABG HCO3 22.4 22.3 ABG Total CO2 19.5 L 23.4 ABG O2 Saturation 97.6 96.3 ABG Base Excess -2.4 -1.7 Hemoglobin 10.8 L 11.0 L Hematocrit 33.2 L 32.0 L Potassium 4.9 4.7 Glucose 175 H 160 H Sodium Chloride Carbon Dioxide Anion Gap BUN Creatinine GFR Calculation BUN/Creatinine Ratio POC Glucose 186 H Calculated Osmolality Calcium Magnesium Total Bilirubin Direct Bilirubin AST ALT Alkaline Phosphatase Total Protein Albumin Globulin Albumin/Globulin Ratio Blood Type Antibody Screen Crossmatch 04/25/17 04/25/17 04/25/17 03:57 04:05 04:05 WBC 13.7 H RBC 3.38 L Hgb 10.5 L Hct 30.0 L MCV 88.8 MCH 31 MCHC 35.0 RDW 14.9 Plt Count 87 L MPV 11.7 Neut % (Auto) 89.7 H Lymph % (Auto) 3.5 L [place] % (Auto) 5.1 Eos % (Auto) 0.0 Baso % (Auto) 0.1 Neut # (Auto) 12.3 H Lymph # (Auto) 0.5 L [place] # (Auto) 0.7 Eos # (Auto) 0.0 Baso # (Auto) 0.0 Total Counted 100 Immature Gran % 1.6 Nucleated RBC % 0.0 Immature Gran # 0.22 Segmented Neutrophils 91 H Lymphocytes 4 L Monocytes 4 Eosinophils 1 Nucleated RBCs # 0.00 Platelet Estimate Decreased Immature Plt Fraction 0.0 Hypochromasia 2+ ABG pH ABG pCO2 ABG pO2 ABG HCO3 ABG Total CO2 ABG O2 Saturation ABG Base Excess Hemoglobin Hematocrit Potassium 4.5 Glucose 146 H Sodium 141 Chloride 106 Carbon Dioxide 27 Anion Gap 12.5 BUN 26 H Creatinine 1.70 H GFR Calculation 39 BUN/Creatinine Ratio 15.00 POC Glucose 164 H Calculated Osmolality 288.3 Calcium 8.2 L Magnesium 2.5 H Total Bilirubin 0.90 Direct Bilirubin 0.320 H AST 24 ALT 26 Alkaline Phosphatase 39 L Total Protein 5.5 L Albumin 3.6 Globulin 1.9 L Albumin/Globulin Ratio 1.8 Blood Type Antibody Screen Crossmatch Quality Measures - VTE Contraindication to Pharmacological VTE Prophylaxis: High Risk of Bleeding - Stroke Symptom Onset Unknown: No
[2017-04-25] MEDS: NITROGLYCERIN DRIP 50 MG/250 ML BOTTLE IV SCH (06:26)
--- NOTE | 2017-04-25 08:45 | XRay Report ---
History: Postop chest tube removal. Evaluate for pneumothorax Date: 04/25/2017 at 3:33 AM Study: Chest x-ray single view portable Comparison exam: 04/24/2017 The endotracheal and nasogastric tubes have been removed. The right IJ central line and right subclavian [place] catheter are in stable satisfactory position. There is stable mild cardiomegaly. The mediastinal contours are generally unchanged in this patient status post previous median sternotomy and aortic valve replacement. Chest drainage tubes overlie the mediastinum as before. There is no pneumothorax. The pulmonary vasculature is slightly prominent. There is some mild increased density in the lung bases which is largely related to atelectasis, though some mild superimposed pulmonary edema cannot be excluded. There is probable mild bilateral pleural effusion. Osseous structures are unchanged. Impression: No evidence of a pneumothorax. Continued mild bibasilar postoperative atelectasis with or without some superimposed mild bibasilar pulmonary edema. There is some mild pulmonary venous hypertension. Mild bilateral pleural effusions are present. Interval extubation and nasogastric tube removal PROCEDURE INTERPRETED AT [facility] DEPARTMENT OF RADIOLOGY Final Report Signed by: Dr. Susana Guadalupe
[2017-04-25] MEDS: CHLORHEXIDINE 0.12% ORAL RINSE 60 ML BOTTLE SWISH/SPIT SCH ×2 (08:58→21:30)
--- NOTE | 2017-04-25 09:59 | XRay Report ---
Portable chest Date: 04/25/2017 Clinical history: Chest tube removal Comparison: 04/25/2017 Technique: Portable AP sitting chest Findings: Stable cardiomegaly with recent median sternotomy and cardiac valve replacement. No pneumothorax following removal of the mediastinal chest tubes. There are supportive devices are stable in position with reduced pleural-parenchymal findings at the lung bases. Stable mediastinum and osseous structures. Impression: No evidence of a trace following removal of mediastinal chest tubes. Recent median sternotomy with cardiac valve replacement. Reduced atelectasis/edema at the lung bases with smaller pleural effusions. PROCEDURE INTERPRETED AT [facility] DEPARTMENT OF RADIOLOGY Final Report Signed by: Dr. Harika Watts
--- NOTE | 2017-04-25 10:53 | Event Note ---
Chest tubes removed. Chest x-ray following tube removal shows no evidence of pneumothorax. Patient is doing well now off dobutamine and I believe that he can be transferred to telemetry.
[2017-04-25] MEDS: SODIUM CHLORIDE 0.45% 1,000 ML IV SCH ×2 (12:09→12:10)
[2017-04-25] MEDS ORDERED: MAGNESIUM SULF RIDER 2 GM in PREMIX 1 EACH IV PRN (14:02)
[2017-04-25] MEDS ORDERED: MAGNESIUM HYDROXIDE SUSP 30 ML UDCUP PO PRN (14:02)
[2017-04-25] MEDS ORDERED: ZALEPLON 5 MG CAPSULE PO PRN (14:02)
[2017-04-25] MEDS ORDERED: ACETAMINOPHEN 325 MG TABLET PO PRN (14:02)
[2017-04-25] MEDS ORDERED: DEXTROSE 50% 25 GM/50 ML VIAL IV PRN (14:02)
[2017-04-25] MEDS ORDERED: SODIUM CHLOR 0.45% KCL 20 MEQ 20 MEQ/1,000 ML BAG IV SCH (14:02)
[2017-04-25] MEDS ORDERED: POTASSIUM CHLORIDE 20 MEQ TABLET PO PRN (14:02)
[2017-04-25] MEDS ORDERED: DEXTROSE 50% 25 GM/50 ML SYRINGE IV PRN (14:02)
[2017-04-25] MEDS ORDERED: MAGNESIUM SULF RIDER 4 GM in PREMIX 1 EACH IV PRN (14:02)
[2017-04-25] MEDS ORDERED: ALUMINUM/MAGNES/SIMETH MAX STR 30 ML UDCUP PO PRN (14:02)
[2017-04-25] MEDS ORDERED: GLUCAGON 1 MG VIAL IM PRN ×2 (14:02)
[2017-04-25] MEDS ORDERED: oxyCODONE/ACETAMINOPHEN 5-325 MG TABLET PO PRN (14:02)
[2017-04-25] MEDS ORDERED: ONDANSETRON 4 MG/2 ML VIAL IV PRN (14:02)
[2017-04-25] MEDS: KETOROLAC 15 MG/1 ML VIAL IV SCH ×2 (15:16→21:29)
[2017-04-25] MEDS: DILTIAZEM 30 MG TABLET PO SCH (21:48)
[2017-04-26] MEDS: KETOROLAC 15 MG/1 ML VIAL IV SCH ×4 (03:02→21:21)
[2017-04-26] MEDS ORDERED: FUROSEMIDE 40 MG/4 ML VIAL IV ONE (06:00)
[2017-04-26] MEDS: LEVOTHYROXINE 100 MCG TABLET PO SCH (06:09)
[2017-04-26 06:24] LABS: Basophils % 0.1 % (0.0-0.8); Eosinophils % 0.2 % (0.00-10.9); Hematocrit 31.8 VOL% (42.0-52.0); Hemoglobin 10.9 GM/DL (14.0-18.0); Immature Granulocytes % 0.7 %; Immature Granulocytes Absolute 0.08 #; Lymphocytes # 0.9 10*3/uL (1.4-4.0); Lymphocytes % 7.8 % (21.2-54.2); Mean Corpuscular HGB Conc 34.3 GM/DL (32-36); Mean Corpuscular Hemoglobin 31 PG (27-34); Mean Corpuscular Volume 90.6 FL (87-102); Mean Platelet Volume 12.4 FL (9.6-12.0); Monocytes # 0.8 10*3/uL (0.11-0.8); Monocytes % 7.4 % (1.7-12.7); Neutrophils # 9.4 10*3/uL (1.4-7.4); Neutrophils % 83.8 % (38.7-73.9); Red Blood Count 3.51 MC/CUMM (3.8-5.5); Red Cell Distribution Width 14.8 % (9.3-17.3); White Blood Count 11.2 T/CUMM (4-12)
[2017-04-26 06:35] LABS: Platelet Count 76 T/CUMM (130-400)
[2017-04-26 06:58] LABS: Alanine Aminotransferase 21 U/L (16-61); Albumin 3.2 G/DL (3.4-5.0); Alkaline Phosphatase 42 U/L (45-117); Aspartate Amino Transferase 14 U/L (0-37); Bilirubin,Indirect 2.8 MG/DL (0.0-1.0); Blood Urea Nitrogen 38 MG/DL (7-18); Glucose 121 MG/DL (74-106); Magnesium 2.5 MG/DL (1.8-2.4); Osmolality,Calculated 292.1 MOS/KG (273-304); Potassium 4.3 MMOL/L (3.5-5.1); Sodium 142 MMOL/L (136-145); Troponin I Only 0.728 NG/ML (0.00-0.045)
[2017-04-26 07:12] LABS: Giant Platelets Few; Hypochromasia 1+; Ovalocytes Slight; Platelet Estimate Decreased
--- NOTE | 2017-04-26 08:24 | Cardiothoracic Progress Note ---
Cardiothoracic Subjective Interval history: Patient looks and feels better. He is back to his preoperative neurological status according to his . Vital signs have been stable and he appears to be breathing comfortably. He is in atrial fibrillation and I have turned down his external pacemaker to a demand rate of 50. I am going to restart his Plavix and his warfarin at his preoperative doses. He has been in chronic atrial fibrillation preoperatively. Overall his progress appears to be satisfactory and we will increase his activity as tolerated. Exam (Progress Note) - Constitutional Vitals: Period Temp Pulse Resp BP Sys/Wang Pulse Ox Last 24 Hr 96.9 F-99.6 F 20-86 16-22 90-124/55-68 92-100 Result/EKG - Labs CBC & BMP: 04/26/17 06:10 04/26/17 06:10 Labs: Laboratory Results - last 24 hr 04/24/17 04/25/17 04/26/17 19:59 12:07 06:10 WBC 11.2 RBC 3.51 L Hgb 10.9 L Hct 31.8 L MCV 90.6 MCH 31 MCHC 34.3 RDW 14.8 Plt Count 76 L MPV 12.4 H Neut % (Auto) 83.8 H Lymph % (Auto) 7.8 L [place] % (Auto) 7.4 Eos % (Auto) 0.2 Baso % (Auto) 0.1 Neut # (Auto) 9.4 H Lymph # (Auto) 0.9 L [place] # (Auto) 0.8 Eos # (Auto) 0.0 Baso # (Auto) 0.0 Immature Gran % 0.7 Nucleated RBC % 0.0 Immature Gran # 0.08 Nucleated RBCs # 0.00 Platelet Estimate Decreased Giant Platelets Few Immature Plt Fraction 0.0 Hypochromasia 1+ Ovalocytes Slight Morphology Comment Sodium Potassium Chloride Carbon Dioxide Anion Gap BUN Creatinine GFR Calculation BUN/Creatinine Ratio Glucose POC Glucose 187 H 137 H Calculated Osmolality Calcium Magnesium Total Bilirubin Direct Bilirubin Indirect Bilirubin AST ALT Alkaline Phosphatase Total Creatine Kinase CK-MB (CK-2) Troponin I Total Protein Albumin Globulin Albumin/Globulin Ratio 04/26/17 06:10 WBC RBC Hgb Hct MCV MCH MCHC RDW Plt Count MPV Neut % (Auto) Lymph % (Auto) [place] % (Auto) Eos % (Auto) Baso % (Auto) Neut # (Auto) Lymph # (Auto) [place] # (Auto) Eos # (Auto) Baso # (Auto) Immature Gran % Nucleated RBC % Immature Gran # Nucleated RBCs # Platelet Estimate Giant Platelets Immature Plt Fraction Hypochromasia Ovalocytes Morphology Comment Sodium 142 Potassium 4.3 Chloride 107 Carbon Dioxide 28 Anion Gap 11.3 BUN 38 H Creatinine 1.60 H GFR Calculation 42 BUN/Creatinine Ratio 23.00 H Glucose 121 H POC Glucose Calculated Osmolality 292.1 Calcium 8.0 L Magnesium 2.5 H Total Bilirubin 3.20 H Direct Bilirubin 0.390 H Indirect Bilirubin 2.8 H AST 14 ALT 21 Alkaline Phosphatase 42 L Total Creatine Kinase 209 D CK-MB (CK-2) 2.3 D Troponin I 0.728 H D Total Protein 5.0 L Albumin 3.2 L Globulin 1.8 L Albumin/Globulin Ratio 1.7 Quality Measures - VTE Contraindication to Pharmacological VTE Prophylaxis: High Risk of Bleeding - Stroke Symptom Onset Unknown: No Specialty Discharge - Follow Up or Referrals
--- NOTE | 2017-04-26 08:31 | XRay Report ---
Portable chest Date: 04/26/2017 Clinical history: Shortness of breath Comparison: 04/25/2017 Technique: Portable AP sitting chest Findings: Status post median sternotomy and cardiac valve replacement with stable cardiomegaly. Removal of the [place] catheter with stable right IJ CVP line. Minimal atelectasis/edema at the lung bases with small pleural effusions. No pneumothorax. Impression: Recent median sternotomy with cardiac valve replacement. Residual minimal atelectasis/edema at the lung bases with small pleural effusions. PROCEDURE INTERPRETED AT [facility] DEPARTMENT OF RADIOLOGY Final Report Signed by: Dr. Harika Watts
[2017-04-26] MEDS: DILTIAZEM 30 MG TABLET PO SCH ×2 (08:46→21:22)
[2017-04-26] MEDS: PANTOPRAZOLE 40 MG TABLET PO SCH (08:46)
[2017-04-26] MEDS: ASPIRIN EC 325 MG TABLET PO SCH (08:46)
[2017-04-26] MEDS: DOCUSATE SODIUM 100 MG CAPSULE PO SCH (08:46)
[2017-04-26] MEDS: FERROUS SULFATE 325 MG TABLET PO SCH (08:46)
[2017-04-26] MEDS: CHLORHEXIDINE 0.12% ORAL RINSE 60 ML BOTTLE SWISH/SPIT SCH ×2 (08:48→21:22)
[2017-04-26] MEDS: CLOPIDOGREL 75 MG TABLET PO SCH (08:58)
[2017-04-26] MEDS: WARFARIN 5 MG TABLET PO SCH (19:03)
[2017-04-27] MEDS: KETOROLAC 15 MG/1 ML VIAL IV SCH ×4 (01:52→20:54)
[2017-04-27] MEDS: LEVOTHYROXINE 100 MCG TABLET PO SCH (06:02)
[2017-04-27 06:05] LABS: Basophils % 0.1 % (0.0-0.8); Eosinophils # 0.1 10*3/uL (0.0-0.87); Eosinophils % 1.8 % (0.00-10.9); Hematocrit 29.1 VOL% (42.0-52.0); Hemoglobin 10.1 GM/DL (14.0-18.0); Immature Granulocytes % 0.5 %; Immature Granulocytes Absolute 0.04 #; Lymphocytes # 0.8 10*3/uL (1.4-4.0); Lymphocytes % 10.3 % (21.2-54.2); Mean Corpuscular HGB Conc 34.7 GM/DL (32-36); Mean Corpuscular Hemoglobin 31 PG (27-34); Mean Corpuscular Volume 90.1 FL (87-102); Mean Platelet Volume 12.4 FL (9.6-12.0); Monocytes # 0.5 10*3/uL (0.11-0.8); Monocytes % 7.3 % (1.7-12.7); Neutrophils # 5.9 10*3/uL (1.4-7.4); Red Blood Count 3.23 MC/CUMM (3.8-5.5); Red Cell Distribution Width 14.2 % (9.3-17.3)
[2017-04-27 06:12] LABS: Platelet Count 65 T/CUMM (130-400); White Blood Count 7.4 T/CUMM (4-12)
--- NOTE | 2017-04-27 06:24 | Cardiothoracic Progress Note ---
Cardiothoracic Subjective Interval history: Patient looks and feels better. He is gradually regaining his strength. Vital signs have been stable and he is breathing comfortably. His chest x-ray looks great this morning. We will continue to increase his activities as tolerated. Overall his progress is satisfactory. Exam (Progress Note) - Constitutional Vitals: Period Temp Pulse Resp BP Sys/Wang Pulse Ox Last 24 Hr 96.8 F-98.7 F 65-87 16-20 85-111/49-76 93-97 Result/EKG - Labs CBC & BMP: 04/27/17 05:30 04/26/17 06:10 Labs: Laboratory Results - last 24 hr 04/26/17 04/26/17 04/26/17 06:10 06:10 08:24 WBC 11.2 RBC 3.51 L Hgb 10.9 L Hct 31.8 L MCV 90.6 MCH 31 MCHC 34.3 RDW 14.8 Plt Count 76 L MPV 12.4 H Neut % (Auto) 83.8 H Lymph % (Auto) 7.8 L [place] % (Auto) 7.4 Eos % (Auto) 0.2 Baso % (Auto) 0.1 Neut # (Auto) 9.4 H Lymph # (Auto) 0.9 L [place] # (Auto) 0.8 Eos # (Auto) 0.0 Baso # (Auto) 0.0 Immature Gran % 0.7 Nucleated RBC % 0.0 Immature Gran # 0.08 Nucleated RBCs # 0.00 Platelet Estimate Decreased Giant Platelets Few Immature Plt Fraction 0.0 Hypochromasia 1+ Ovalocytes Slight Morphology Comment Sodium 142 Potassium 4.3 Chloride 107 Carbon Dioxide 28 Anion Gap 11.3 BUN 38 H Creatinine 1.60 H GFR Calculation 42 BUN/Creatinine Ratio 23.00 H Glucose 121 H POC Glucose 187 H Calculated Osmolality 292.1 Calcium 8.0 L Magnesium 2.5 H Total Bilirubin 3.20 H Direct Bilirubin 0.390 H Indirect Bilirubin 2.8 H AST 14 ALT 21 Alkaline Phosphatase 42 L Total Creatine Kinase 209 D CK-MB (CK-2) 2.3 D Troponin I 0.728 H D Total Protein 5.0 L Albumin 3.2 L Globulin 1.8 L Albumin/Globulin Ratio 1.7 04/26/17 04/26/17 04/26/17 11:43 16:45 19:36 WBC RBC Hgb Hct MCV MCH MCHC RDW Plt Count MPV Neut % (Auto) Lymph % (Auto) [place] % (Auto) Eos % (Auto) Baso % (Auto) Neut # (Auto) Lymph # (Auto) [place] # (Auto) Eos # (Auto) Baso # (Auto) Immature Gran % Nucleated RBC % Immature Gran # Nucleated RBCs # Platelet Estimate Giant Platelets Immature Plt Fraction Hypochromasia Ovalocytes Morphology Comment Sodium Potassium Chloride Carbon Dioxide Anion Gap BUN Creatinine GFR Calculation BUN/Creatinine Ratio Glucose POC Glucose 173 H 167 H 151 H Calculated Osmolality Calcium Magnesium Total Bilirubin Direct Bilirubin Indirect Bilirubin AST ALT Alkaline Phosphatase Total Creatine Kinase CK-MB (CK-2) Troponin I Total Protein Albumin Globulin Albumin/Globulin Ratio 04/27/17 05:30 WBC 7.4 D RBC 3.23 L Hgb 10.1 L Hct 29.1 L MCV 90.1 MCH 31 MCHC 34.7 RDW 14.2 Plt Count 65 L MPV 12.4 H Neut % (Auto) 80.0 H Lymph % (Auto) 10.3 L [place] % (Auto) 7.3 Eos % (Auto) 1.8 Baso % (Auto) 0.1 Neut # (Auto) 5.9 Lymph # (Auto) 0.8 L [place] # (Auto) 0.5 Eos # (Auto) 0.1 Baso # (Auto) 0.0 Immature Gran % 0.5 Nucleated RBC % 0.0 Immature Gran # 0.04 Nucleated RBCs # 0.00 Platelet Estimate Giant Platelets Immature Plt Fraction 12.7 H Hypochromasia Ovalocytes Morphology Comment Sodium Potassium Chloride Carbon Dioxide Anion Gap BUN Creatinine GFR Calculation BUN/Creatinine Ratio Glucose POC Glucose Calculated Osmolality Calcium Magnesium Total Bilirubin Direct Bilirubin Indirect Bilirubin AST ALT Alkaline Phosphatase Total Creatine Kinase CK-MB (CK-2) Troponin I Total Protein Albumin Globulin Albumin/Globulin Ratio Quality Measures - VTE Contraindication to Pharmacological VTE Prophylaxis: High Risk of Bleeding - Stroke Symptom Onset Unknown: No Specialty Discharge - Follow Up or Referrals
[2017-04-27 06:35] LABS: Alanine Aminotransferase 25 U/L (16-61); Alkaline Phosphatase 46 U/L (45-117); Aspartate Amino Transferase 19 U/L (0-37); Bilirubin,Indirect 1.6 MG/DL (0.0-1.0); Blood Urea Nitrogen 38 MG/DL (7-18); Calcium 8.2 MG/DL (8.5-10.1); Glucose 102 MG/DL (74-106); Magnesium 2.5 MG/DL (1.8-2.4); Osmolality,Calculated 291.1 MOS/KG (273-304); Potassium 3.9 MMOL/L (3.5-5.1); Sodium 142 MMOL/L (136-145); Total Protein 4.7 G/DL (6.4-8.3); Troponin I Only 0.529 NG/ML (0.00-0.045)
[2017-04-27 06:48] LABS: Giant Platelets Few; Hypochromasia 1+; Ovalocytes Slight; Platelet Estimate Decreased
[2017-04-27] MEDS: PANTOPRAZOLE 40 MG TABLET PO SCH (08:52)
[2017-04-27] MEDS: FERROUS SULFATE 325 MG TABLET PO SCH (08:52)
[2017-04-27] MEDS: CLOPIDOGREL 75 MG TABLET PO SCH (08:52)
[2017-04-27] MEDS: ASPIRIN EC 325 MG TABLET PO SCH (08:52)
[2017-04-27] MEDS: DOCUSATE SODIUM 100 MG CAPSULE PO SCH (08:52)
[2017-04-27] MEDS: DILTIAZEM 30 MG TABLET PO SCH ×2 (08:52→20:54)
[2017-04-27] MEDS: CHLORHEXIDINE 0.12% ORAL RINSE 60 ML BOTTLE SWISH/SPIT SCH ×2 (09:02→20:55)
--- NOTE | 2017-04-27 09:23 | XRay Report ---
History: Shortness of breath Date: 04/27/2017 Study: Chest x-ray AP portable Comparison exam: 04/26/2017 The right IJ central line is in stable satisfactory position. There is stable cardiomegaly. The mediastinal contour is unchanged in this patient status post prior median sternotomy and aortic valve replacement. The pulmonary vasculature is not engorged. There is some persistent but improved mild right lower lung atelectasis. The lungs are otherwise generally clear. There is no increasing pleural effusion. There is no pneumothorax. Osseous structures are unchanged. Impression: Mildly improved atelectatic changes in the lung bases. No interval worsening. No pneumothorax PROCEDURE INTERPRETED AT [facility] DEPARTMENT OF RADIOLOGY Final Report Signed by: Dr. Susana Guadalupe
[2017-04-27] MEDS: WARFARIN 5 MG TABLET PO SCH (18:11)
[2017-04-28] MEDS: KETOROLAC 15 MG/1 ML VIAL IV SCH ×4 (01:45→08:53)
[2017-04-28] MEDS: CLOPIDOGREL 75 MG TABLET PO SCH (08:54)
[2017-04-28] MEDS: DOCUSATE SODIUM 100 MG CAPSULE PO SCH (08:54)
[2017-04-28] MEDS: ASPIRIN EC 325 MG TABLET PO SCH (08:54)
[2017-04-28] MEDS: DILTIAZEM 30 MG TABLET PO SCH ×2 (08:54→20:38)
[2017-04-28] MEDS: LEVOTHYROXINE 100 MCG TABLET PO SCH (08:55)
[2017-04-28] MEDS: PANTOPRAZOLE 40 MG TABLET PO SCH (08:55)
[2017-04-28] MEDS: CHLORHEXIDINE 0.12% ORAL RINSE 60 ML BOTTLE SWISH/SPIT SCH ×2 (08:55→20:39)
[2017-04-28] MEDS: FERROUS SULFATE 325 MG TABLET PO SCH (08:56)
--- NOTE | 2017-04-28 09:13 | Cardiothoracic Progress Note ---
Cardiothoracic Subjective Interval history: Patient looks and feels okay this morning. He did have some disorientation during the night when he was trying to pull out his IV and pacing wires. This appears to be better this morning. Vital signs have been stable and he has been breathing comfortably throughout. I am going to discontinue his central line and his pacing wires and gradually increase his activity as tolerated. I think the best treatment for his disorientation will be for him to be back in his home environment as soon as possible but this may still be another 2-3 days away. Exam (Progress Note) - Constitutional Vitals: Period Temp Pulse Resp BP Sys/Wang Pulse Ox Last 24 Hr 97.5 F-99.0 F 74-92 16-20 114-135/59-78 81-98 Result/EKG - Labs CBC & BMP: 04/27/17 05:30 04/27/17 05:30 Labs: Laboratory Results - last 24 hr 04/27/17 04/27/17 04/27/17 11:21 15:27 19:32 POC Glucose 207 H 156 H 138 H 04/27/17 20:33 POC Glucose 148 H Quality Measures - VTE Contraindication to Pharmacological VTE Prophylaxis: High Risk of Bleeding - Stroke Symptom Onset Unknown: No Specialty Discharge - Follow Up or Referrals
[2017-04-28] MEDS: WARFARIN 5 MG TABLET PO SCH (17:58)
[2017-04-29 05:17] LABS: Basophils % 0.1 % (0.0-0.8); Eosinophils # 0.2 10*3/uL (0.0-0.87); Eosinophils % 2.6 % (0.00-10.9); Hemoglobin 9.7 GM/DL (14.0-18.0); Immature Granulocytes % 0.4 %; Immature Granulocytes Absolute 0.03 #; Lymphocytes # 0.7 10*3/uL (1.4-4.0); Lymphocytes % 9.2 % (21.2-54.2); Mean Corpuscular HGB Conc 34.6 GM/DL (32-36); Mean Corpuscular Hemoglobin 31 PG (27-34); Mean Corpuscular Volume 89.5 FL (87-102); Mean Platelet Volume 12.2 FL (9.6-12.0); Monocytes # 0.7 10*3/uL (0.11-0.8); Neutrophils # 5.7 10*3/uL (1.4-7.4); Neutrophils % 77.7 % (38.7-73.9); Red Blood Count 3.13 MC/CUMM (3.8-5.5); White Blood Count 7.3 T/CUMM (4-12)
[2017-04-29 05:27] LABS: Platelet Count 103 T/CUMM (130-400)
[2017-04-29 05:48] LABS: Alanine Aminotransferase 43 U/L (16-61); Albumin 2.9 G/DL (3.4-5.0); Alkaline Phosphatase 57 U/L (45-117); Aspartate Amino Transferase 31 U/L (0-37); Bilirubin,Indirect 1.9 MG/DL (0.0-1.0); Blood Urea Nitrogen 21 MG/DL (7-18); Glucose 112 MG/DL (74-106); Magnesium 2.4 MG/DL (1.8-2.4); Osmolality,Calculated 282.4 MOS/KG (273-304); Potassium 4.1 MMOL/L (3.5-5.1); Sodium 140 MMOL/L (136-145); Total Protein 5.1 G/DL (6.4-8.3)
[2017-04-29 05:53] LABS: Troponin I Only 0.203 NG/ML (0.00-0.045)
[2017-04-29] MEDS: LEVOTHYROXINE 100 MCG TABLET PO SCH (06:07)
--- NOTE | 2017-04-29 08:32 | Cardiothoracic Progress Note ---
Cardiothoracic Subjective Interval history: Patient looks and feels stronger. He is ambulating more easily. He has not had any further disorientation. Vital signs are stable and is breathing comfortably. Continue his present level of activity and I hope that he will be ready for discharge in the morning. Exam (Progress Note) - Constitutional Vitals: Period Temp Pulse Resp BP Sys/Wang Pulse Ox Last 24 Hr 97.8 F-99.4 F 75-95 18-22 115-143/65-85 92-98 Result/EKG - Labs CBC & BMP: 04/29/17 04:27 04/29/17 04:27 Labs: Laboratory Results - last 24 hr 04/28/17 04/28/17 04/28/17 07:42 11:28 15:51 WBC RBC Hgb Hct MCV MCH MCHC RDW Plt Count MPV Neut % (Auto) Lymph % (Auto) [place] % (Auto) Eos % (Auto) Baso % (Auto) Neut # (Auto) Lymph # (Auto) [place] # (Auto) Eos # (Auto) Baso # (Auto) Immature Gran % Nucleated RBC % Immature Gran # Nucleated RBCs # Immature Plt Fraction Sodium Potassium Chloride Carbon Dioxide Anion Gap BUN Creatinine GFR Calculation BUN/Creatinine Ratio Glucose POC Glucose 122 H 145 H 157 H Calculated Osmolality Calcium Magnesium Total Bilirubin Direct Bilirubin Indirect Bilirubin AST ALT Alkaline Phosphatase Total Creatine Kinase CK-MB (CK-2) Troponin I Total Protein Albumin Globulin Albumin/Globulin Ratio 04/28/17 04/28/17 04/29/17 19:51 23:22 04:27 WBC 7.3 RBC 3.13 L Hgb 9.7 L Hct 28.0 L MCV 89.5 MCH 31 MCHC 34.6 RDW 14.0 Plt Count 103 L D MPV 12.2 H Neut % (Auto) 77.7 H Lymph % (Auto) 9.2 L [place] % (Auto) 10.0 Eos % (Auto) 2.6 Baso % (Auto) 0.1 Neut # (Auto) 5.7 Lymph # (Auto) 0.7 L [place] # (Auto) 0.7 Eos # (Auto) 0.2 Baso # (Auto) 0.0 Immature Gran % 0.4 Nucleated RBC % 0.0 Immature Gran # 0.03 Nucleated RBCs # 0.00 Immature Plt Fraction 0.0 Sodium Potassium Chloride Carbon Dioxide Anion Gap BUN Creatinine GFR Calculation BUN/Creatinine Ratio Glucose POC Glucose 161 H 118 H Calculated Osmolality Calcium Magnesium Total Bilirubin Direct Bilirubin Indirect Bilirubin AST ALT Alkaline Phosphatase Total Creatine Kinase CK-MB (CK-2) Troponin I Total Protein Albumin Globulin Albumin/Globulin Ratio 04/29/17 04/29/17 04:27 07:45 WBC RBC Hgb Hct MCV MCH MCHC RDW Plt Count MPV Neut % (Auto) Lymph % (Auto) [place] % (Auto) Eos % (Auto) Baso % (Auto) Neut # (Auto) Lymph # (Auto) [place] # (Auto) Eos # (Auto) Baso # (Auto) Immature Gran % Nucleated RBC % Immature Gran # Nucleated RBCs # Immature Plt Fraction Sodium 140 Potassium 4.1 Chloride 106 Carbon Dioxide 25 Anion Gap 13.1 BUN 21 H Creatinine 1.00 GFR Calculation 79 BUN/Creatinine Ratio 21.00 H Glucose 112 H POC Glucose 123 H Calculated Osmolality 282.4 Calcium 8.0 L Magnesium 2.4 Total Bilirubin 2.40 H Direct Bilirubin 0.500 H Indirect Bilirubin 1.9 H AST 31 ALT 43 Alkaline Phosphatase 57 Total Creatine Kinase 81 D CK-MB (CK-2) < 1.0 Troponin I 0.203 H D Total Protein 5.1 L Albumin 2.9 L Globulin 2.2 L Albumin/Globulin Ratio 1.3 Quality Measures - VTE Contraindication to Pharmacological VTE Prophylaxis: High Risk of Bleeding - Stroke Symptom Onset Unknown: No Specialty Discharge - Follow Up or Referrals
[2017-04-29] MEDS: DOCUSATE SODIUM 100 MG CAPSULE PO SCH (09:24)
[2017-04-29] MEDS: ASPIRIN EC 325 MG TABLET PO SCH (09:24)
[2017-04-29] MEDS: CLOPIDOGREL 75 MG TABLET PO SCH (09:24)
[2017-04-29] MEDS: PANTOPRAZOLE 40 MG TABLET PO SCH (09:24)
[2017-04-29] MEDS: DILTIAZEM 30 MG TABLET PO SCH ×2 (09:24→20:08)
[2017-04-29] MEDS: FERROUS SULFATE 325 MG TABLET PO SCH (09:24)
[2017-04-29] MEDS: CHLORHEXIDINE 0.12% ORAL RINSE 60 ML BOTTLE SWISH/SPIT SCH ×2 (09:25→20:09)
--- NOTE | 2017-04-29 11:05 | XRay Report ---
2 view chest April 29, 2017 at 0706 hours Indication: Shortness of breath Comparison images dated April 27, 2017 Findings: Cardiomediastinal contours are stable post valve replacement with sternotomy wires and midline. Low lung volumes with coarsened interstitial markings and basilar atelectasis. Visualized upper abdomen is unremarkable. Removal of the right central venous sheath in the interim. Impression: 1. Uncomplicated Removal of right central venous sheath 2. Bibasilar atelectasis with trace effusions, likely unchanged allowing for difference in inspiration PROCEDURE INTERPRETED AT [facility] DEPARTMENT OF RADIOLOGY Final Report Signed by: Valentin Saleh
--- NOTE | 2017-04-29 12:47 | Pulmonology Progress Note ---
Exam (Progress Note) - Constitutional Vitals: Period Temp Pulse Resp BP Sys/Wang Pulse Ox Last 24 Hr 97.8 F-99.4 F 75-95 18-22 115-147/65-85 92-97 Results - Labs CBC & BMP: 04/29/17 04:27 04/29/17 04:27 Specialty Discharge - Follow Up or Referrals
[2017-04-29] MEDS: WARFARIN 5 MG TABLET PO SCH (18:00)
[2017-04-30 05:15] LABS: Basophils % 0.3 % (0.0-0.8); Eosinophils # 0.2 10*3/uL (0.0-0.87); Eosinophils % 2.6 % (0.00-10.9); Hematocrit 28.6 VOL% (42.0-52.0); Hemoglobin 9.6 GM/DL (14.0-18.0); Immature Granulocytes % 0.8 %; Immature Granulocytes Absolute 0.05 #; Lymphocytes # 0.8 10*3/uL (1.4-4.0); Lymphocytes % 12.2 % (21.2-54.2); Mean Corpuscular HGB Conc 33.6 GM/DL (32-36); Mean Corpuscular Hemoglobin 30 PG (27-34); Mean Corpuscular Volume 89.7 FL (87-102); Mean Platelet Volume 11.8 FL (9.6-12.0); Monocytes # 0.6 10*3/uL (0.11-0.8); Monocytes % 10.2 % (1.7-12.7); Neutrophils # 4.6 10*3/uL (1.4-7.4); Neutrophils % 73.9 % (38.7-73.9); Platelet Count 129 T/CUMM (130-400); Red Blood Count 3.19 MC/CUMM (3.8-5.5); Red Cell Distribution Width 13.8 % (9.3-17.3); White Blood Count 6.2 T/CUMM (4-12)
[2017-04-30 05:50] LABS: Alanine Aminotransferase 44 U/L (16-61); Albumin 2.9 G/DL (3.4-5.0); Alkaline Phosphatase 62 U/L (45-117); Aspartate Amino Transferase 29 U/L (0-37); Total Protein 5.2 G/DL (6.4-8.3)
[2017-04-30 05:51] LABS: Blood Urea Nitrogen 18 MG/DL (7-18); Glucose 109 MG/DL (74-106); Magnesium 2.4 MG/DL (1.8-2.4); Osmolality,Calculated 281.4 MOS/KG (273-304); Sodium 140 MMOL/L (136-145)
[2017-04-30 06:00] LABS: Troponin I Only 0.121 NG/ML (0.00-0.045)
[2017-04-30] MEDS: LEVOTHYROXINE 100 MCG TABLET PO SCH (06:14)
[2017-04-30 06:54] LABS: Hematocrit 29.4 VOL% (42.0-52.0)
--- NOTE | 2017-04-30 07:03 | Discharge Summary ---
Hospital Course - Hospital Course Hospital Course: History of the present illness: Patient is an 86-year-old man with known aortic valvular stenosis who is been followed by Dr. Wise and has been noted to have increasing symptoms of shortness of breath and chest discomfort with minimal exertion. Echocardiogram suggested of severe worsening of the aortic stenosis and the patient was advised for consideration of aortic valve replacement despite his advanced age. It was felt that he was a reasonable candidate and therefore was advised to undergo surgery and was admitted for that purpose. Past medical history review of systems social history and family history are documented in his admission note. Hospital course: Patient was taken to surgery where severely stenotic aortic valve was removed and replaced with a 23 mm pericardial prosthesis. Patient's postoperative course was slow but essentially uncomplicated. At the time of discharge he was ambulating with minimal assistance and breathing comfortably. He is to be followed up in 1 month and his discharge medications are listed below. Specialty Discharge - Follow Up or Referrals Follow up with: Farhat Rodrigez MD [Physician] - 1 Month Discharge Plan - Discharge Data Disposition: Disch To Home/Self Care Condition at Discharge: Stable Discharge Diet: advance to your usual diet Activity: resume usual activities as tolerated Hygiene: no restrictions Weight Bearing at Discharge: full weight bearing Driving: not until seen by doctor - Discharge Medications Continue Warfarin [Coumadin] 5 mg PO DAILY@1800 Levothyroxine Tab [Synthroid Tab] 100 mcg PO DAILY@0700 Atorvastatin [Lipitor] 20 mg PO BEDTIME #30 tablet Clopidogrel [Plavix] 75 mg PO DAILY Bumetanide Tab [Bumex Tab] 0.5 mg PO DAILY dilTIAZem HCl [Cardizem LA] 60 mg PO BID Pantoprazole Tab [Protonix Tab] 40 mg PO DAILY #30 tablet - Follow Up or Referral - Forms/Instructions Instructions: Aortic Valve Replacement (DC), Heart Healthy Diet (GEN), Sternal Precautions, Safety Assistant (GEN) Exam - Constitutional Vitals: Period Temp Pulse Resp BP Sys/Wang Pulse Ox Last 24 Hr 98.0 F-98.9 F 83-99 18-24 122-147/66-79 92-98 Discharge Results Procedures and tests throughout hospitalization: Pending Orders 04/22/17 10:03 Fresh Frozen Plasma Routine Red Blood Cells Leuko Red Routine Single Donor Platelets Routine Type and Screen Routine 04/30/17 04:00 XR chest 2V IN AM Labs on day of discharge: Labs from last 24 hours 04/30/17 04/30/17 04/30/17 06:42 04:29 04:29 WBC 6.2 RBC 3.19 L Hgb 10.0 L 9.6 L Hct 29.4 L 28.6 L MCV 89.7 MCH 30 MCHC 33.6 RDW 13.8 Plt Count 129 L D MPV 11.8 Neut % (Auto) 73.9 Lymph % (Auto) 12.2 L [place] % (Auto) 10.2 Eos % (Auto) 2.6 Baso % (Auto) 0.3 Neut # (Auto) 4.6 Lymph # (Auto) 0.8 L [place] # (Auto) 0.6 Eos # (Auto) 0.2 Baso # (Auto) 0.0 Immature Gran % 0.8 Nucleated RBC % 0.0 Immature Gran # 0.05 Nucleated RBCs # 0.00 Immature Plt Fraction 0.0 Sodium 140 Potassium 4.0 Chloride 106 Carbon Dioxide 24 Anion Gap 14.0 BUN 18 Creatinine 1.00 GFR Calculation 78 BUN/Creatinine Ratio 18.00 Glucose 109 H POC Glucose Calculated Osmolality 281.4 Calcium 8.0 L Magnesium 2.4 Total Bilirubin 1.40 H Direct Bilirubin 0.430 H Indirect Bilirubin 1.0 AST 29 ALT 44 Alkaline Phosphatase 62 Total Creatine Kinase 66 CK-MB (CK-2) 1.6 Troponin I 0.121 H D Total Protein 5.2 L Albumin 2.9 L Globulin 2.3 Albumin/Globulin Ratio 1.2 04/29/17 04/29/17 04/29/17 19:41 15:59 12:09 WBC RBC Hgb Hct MCV MCH MCHC RDW Plt Count MPV Neut % (Auto) Lymph % (Auto) [place] % (Auto) Eos % (Auto) Baso % (Auto) Neut # (Auto) Lymph # (Auto) [place] # (Auto) Eos # (Auto) Baso # (Auto) Immature Gran % Nucleated RBC % Immature Gran # Nucleated RBCs # Immature Plt Fraction Sodium Potassium Chloride Carbon Dioxide Anion Gap BUN Creatinine GFR Calculation BUN/Creatinine Ratio Glucose POC Glucose 139 H 174 H 118 H Calculated Osmolality Calcium Magnesium Total Bilirubin Direct Bilirubin Indirect Bilirubin AST ALT Alkaline Phosphatase Total Creatine Kinase CK-MB (CK-2) Troponin I Total Protein Albumin Globulin Albumin/Globulin Ratio 04/29/17 07:45 WBC RBC Hgb Hct MCV MCH MCHC RDW Plt Count MPV Neut % (Auto) Lymph % (Auto) [place] % (Auto) Eos % (Auto) Baso % (Auto) Neut # (Auto) Lymph # (Auto) [place] # (Auto) Eos # (Auto) Baso # (Auto) Immature Gran % Nucleated RBC % Immature Gran # Nucleated RBCs # Immature Plt Fraction Sodium Potassium Chloride Carbon Dioxide Anion Gap BUN Creatinine GFR Calculation BUN/Creatinine Ratio Glucose POC Glucose 123 H Calculated Osmolality Calcium Magnesium Total Bilirubin Direct Bilirubin Indirect Bilirubin AST ALT Alkaline Phosphatase Total Creatine Kinase CK-MB (CK-2) Troponin I Total Protein Albumin Globulin Albumin/Globulin Ratio DS: Provider Date of admission: 04/22/17 08:54 Primary care physician: Kris Stanton Attending physician on admission: Farhat Rodrigez MD Consults: 04/25/17 14:02 Consult to Cardiac Rehabilitation [CONS] Routine Reason for Cardiac Rehabilitation: Other Consult Comment: Post CABG/heart surgery Consult to Diabetes Center, Educator [CONS] Routine Reason for Line Construction Supervisor: Diabetes Education Initial Insulin Education Consult Comment: insulin education Consult to Dietitian [CONS] Routine Reason for Dietitian: Dietary Consult Consult Comment: Cardiac, low salt, low cholesterol diet Consult to Physical Therapy [CONS] Routine Reason for Physical Therapy: Other Consult Comment: CV Rehab Discharging clinician: Farhat Rodrigez MD Expected date of discharge: 04/30/17
[2017-04-30] MEDS: ASPIRIN EC 325 MG TABLET PO SCH (08:27)
[2017-04-30] MEDS: DILTIAZEM 30 MG TABLET PO SCH (08:27)
[2017-04-30] MEDS: CLOPIDOGREL 75 MG TABLET PO SCH (08:27)
[2017-04-30] MEDS: DOCUSATE SODIUM 100 MG CAPSULE PO SCH (08:28)
[2017-04-30] MEDS: PANTOPRAZOLE 40 MG TABLET PO SCH (08:28)
[2017-04-30] MEDS: CHLORHEXIDINE 0.12% ORAL RINSE 60 ML BOTTLE SWISH/SPIT SCH (08:28)
[2017-04-30] MEDS: FERROUS SULFATE 325 MG TABLET PO SCH (08:28)
--- NOTE | 2017-04-30 09:54 | EKG Report ---
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
--- NOTE | 2017-04-30 10:17 | XRay Report ---
2 view chest April 30, 2017 at 0727 hours Indication: Cough Comparison images from previous day at 0706 hours Findings: Cardiomediastinal contours are stable. Bibasilar pleural-parenchymal opacities are unchanged. No acute osseous abnormalities. Impression: No interval change in appearance of the chest PROCEDURE INTERPRETED AT [facility] DEPARTMENT OF RADIOLOGY Final Report Signed by: Valentin Saleh
[2017-04-30 12:11] VITALS: BP 139/84
--- NOTE | 2017-04-30 12:49 | Pulmonology Progress Note ---
Exam (Progress Note) - Constitutional Vitals: Period Temp Pulse Resp BP Sys/Wang Pulse Ox Last 24 Hr 97.9 F-98.9 F 71-99 16-24 122-142/66-84 92-98 Results - Labs CBC & BMP: 04/30/17 06:42 04/30/17 04:29 Specialty Discharge - Follow Up or Referrals Follow up with: Farhat Rodrigez MD [Physician] - 1 Month
--- NOTE | 2017-05-02 16:33 | Physician Query Form ---
CLICK EDIT DOCUMENT TO SELECT QUERY ANSWER --> OK --> SIGN Melissa Putnam RN Clinical Painter Assistant W) [phone] (f) [phone] [email or web address] PROVIDERS: Make your selection(s) from the choices in EACH section by typing an "x" and enter comments in the comment section. Please use your independent medical judgment in providing your response. This request does not imply that any particular answer is desired or expected. CLINICAL INDICATORS: (Providers should not edit this section) Based on documentation of "Post op hemorrhage" Back to surgery for repair. Transfused 3 units PRBC, 2 units FFP, and 1 unit PLTS Based on the above, could you clarify which of the following conditions you are evaluating, treating, and/or monitoring? ( ) Blood loss anemia ( ) acute ( ) chronic ( ) acute on chronic ( ) Acute blood loss anemia on baseline chronic anemia (x ) Acute blood loss anemia as a complication of a procedure ( ) Anemia due to other condition, please specify: ( ) Clinically unable to determine COMMENTS: PLEASE ALSO DOCUMENT RESPONSE IN PROGRESS NOTES AND/OR DISCHARGE SUMMARY Use of terms such as suspected, likely, or probable (associated with a specific diagnosis that is being evaluated, monitored, or treated as if it exists) are acceptable and can be restated in the discharge summary if not ruled out. MTDD
--- NOTE | 2017-05-02 16:36 | Physician Query Form ---
CLICK EDIT DOCUMENT TO SELECT QUERY ANSWER --> OK --> SIGN Melissa Putnam RN Clinical Trolley Cleaner W) [phone] (f) [phone] [email or web address] PROVIDERS: Make your selection(s) from the choices in EACH section by typing an "x" and enter comments in the comment section. Please use your independent medical judgment in providing your response. This request does not imply that any particular answer is desired or expected. CLINICAL INDICATORS: (Providers should not edit this section) Based on documentation of "Post op hemorrhage" BP as low as 84/36. Taken back to surgery for repair. Transfused 3PRBC, 2FFP, 1PLT. NS infusion. Please clarify which, if any, of the following is the etiology of the above symptoms and treatment rendered: ( ) Hypovolemic shock ( ) Septic shock ( ) Cardiogenic shock ( x) Hemorrhagic shock ( ) Traumatic shock ( ) Shock due to, please specify etiology: ( ) Shock, unknown etiology ( ) Drug induced, please specify substance: ( ) Iatrogenic Hypotension ( ) Orthostatic Hypotension ( ) Hypotension, unknown etiology ( ) Other, please specify: ( ) Clinically unable to determine COMMENTS: PLEASE ALSO DOCUMENT RESPONSE IN PROGRESS NOTES AND/OR DISCHARGE SUMMARY Use of terms such as suspected, likely, or probable (associated with a specific diagnosis that is being evaluated, monitored, or treated as if it exists) are acceptable and can be restated in the discharge summary if not ruled out. MTDD
== END 2017-04-30 12:00 | disposition home or self-care (01) | DRG 219 ==
LOC: N.TELES 08:54 → N.CVR 04-23 10:21 → N.ICU 04-24 23:34 → N.TELES 04-25 13:57

== ENCOUNTER 2020-10-05 15:52 | Inpatient (IN) ==
[2020-10-05 17:09] LABS: Basophils # 0.1 10*3/uL (0.0-0.2); Basophils % 0.5 % (0.0-0.8); Eosinophils # 0.3 10*3/uL (0.0-0.87); Eosinophils % 2.1 % (0.00-10.9); Hematocrit 55.3 VOL% (42.0-52.0); Hemoglobin 17.8 GM/DL (14.0-18.0); Immature Granulocytes % 0.8 %; Lymphocytes # 0.9 10*3/uL (1.4-4.0); Lymphocytes % 6.7 % (21.2-54.2); Mean Corpuscular HGB Conc 32.2 GM/DL (32-36); Mean Corpuscular Volume 99.8 FL (87-102); Mean Platelet Volume 13.1 FL (9.6-12.0); Monocytes % 4.7 % (1.7-12.7); Neutrophils % 85.2 % (38.7-73.9); Platelet Count 190 T/CUMM (130-400); Red Blood Count 5.54 MC/CUMM (3.8-5.5); Red Cell Distribution Width 12.5 % (9.3-17.3); White Blood Count 12.6 T/CUMM (4-12)
[2020-10-05 17:16] LABS: Amorphous Crystals,Urine Occasional /HPF (Few); Bacteria,Urine Occasional /HPF (Few); Bilirubin,Urine Negative (Negative); Blood, Urine Negative (Negative); Glucose,Urine (UA) >=500 mg/dL (Negative); Hyaline Casts,Urine 40 /LPF (0-3); Ketones,Urine Negative (Negative); Mucus,Urine Occasional /LPF (Occasional); Nitrite,Urine Negative (Negative); Protein,Urine Negative; RBC,Urine 2 /HPF (0-4); Squamous Epithelial Cell,Urine Occasional /HPF (0-10); Urine Appearance CLEAR (Clear); Urine Color Yellow (Yellow); Urine Specific Gravity 1.023 (1.001-1.035); WBC,Urine 2 /HPF (0-6)
[2020-10-05 17:35] LABS: Albumin 3.9 G/DL (3.4-5.0); Bilirubin,Total 1.4 MG/DL (0.2-1.0); Calcium 10.2 MG/DL (8.5-10.1); Osmolality,Calculated 349.1 MOS/KG (273-304); Potassium 4.9 MMOL/L (3.5-5.1); Total Protein 8.8 G/DL (6.4-8.3)
[2020-10-05 17:51] LABS: Atypical Lymphocytes 1+; Band Neutrophils 1 % (0-10); Eosinophils 2 % (0-10); Lymphocytes 5 % (20-55); Platelet Estimate Adequate; Segmented Neutrophils 86 % (50-85); Total Cells Counted 100
[2020-10-05] MEDS ORDERED: INSULIN REGULAR 100 UNIT/ML IV STA ×2 (18:00→19:26)
[2020-10-05 19:02] LABS: VBG Base Excess 2.6 MEQ/L (0-4); VBG HCO3 26.2 MEQ/L (24-28); VBG PCO2 55.3 MMHG (41-51); VBG PH 7.349; VBG PO2 51.8 MMHG (17-40); VBG Total CO2 25.2 MMOL/L
[2020-10-05 19:46] LABS: INR 1.7; PT Patient Result 18.9 SECS (9.8-11.9); Partial Thromboplastin Time 29.7 SECS (23.9-33.8)
[2020-10-05] MEDS ORDERED: SODIUM CHLORIDE 0.9% 1,000 ML IV STA (20:42)
[2020-10-05] MEDS ORDERED: ACETAMINOPHEN 500 MG TABLET PO STA (21:50)
[2020-10-05] MEDS ORDERED: DEXTROSE 50% 25 GM/50 ML VIAL IV PRN (23:11)
[2020-10-05] MEDS ORDERED: ACETAMINOPHEN 325 MG TABLET PO PRN (23:11)
[2020-10-05] MEDS ORDERED: GLUCAGON 1 MG VIAL IM PRN (23:11)
[2020-10-05] MEDS ORDERED: ONDANSETRON 4 MG/2 ML VIAL IV PRN (23:11)
[2020-10-06] MEDS: SODIUM CHLORIDE 0.45% 1,000 ML IV SCH ×2 (00:23→11:42)
[2020-10-06] MEDS: INSULIN LISPRO 100 UNIT/ML SUBCUT SCH ×4 (02:35→17:46)
[2020-10-06 06:33] LABS: Basophils # 0.1 10*3/uL (0.0-0.2); Basophils % 0.4 % (0.0-0.8); Eosinophils # 0.4 10*3/uL (0.0-0.87); Hematocrit 51.6 VOL% (42.0-52.0); Hemoglobin 16.4 GM/DL (14.0-18.0); Immature Granulocytes % 0.5 %; Immature Granulocytes Absolute 0.06 #; Lymphocytes # 1.2 10*3/uL (1.4-4.0); Lymphocytes % 8.8 % (21.2-54.2); Mean Corpuscular HGB Conc 31.8 GM/DL (32-36); Mean Platelet Volume 12.6 FL (9.6-12.0); Monocytes % 5.4 % (1.7-12.7); Neutrophils % 81.9 % (38.7-73.9); Platelet Count 159 T/CUMM (130-400); Red Blood Count 5.11 MC/CUMM (3.8-5.5); Red Cell Distribution Width 12.6 % (9.3-17.3); White Blood Count 13.2 T/CUMM (4-12)
[2020-10-06 07:07] LABS: Albumin 3.3 G/DL (3.4-5.0); Bilirubin,Total 1.5 MG/DL (0.2-1.0); Calcium 9.4 MG/DL (8.5-10.1); Osmolality,Calculated 338.9 MOS/KG (273-304); Potassium 3.9 MMOL/L (3.5-5.1); Thyroid Stimulating Hormone 0.804 uIU/ml (0.358-3.74); Total Protein 7.9 G/DL (6.4-8.3)
[2020-10-06] MEDS: LEVOTHYROXINE 100 MCG TABLET PO SCH (07:33)
[2020-10-06] MEDS: DEXTROSE 5% NACL 0.45% 1,000 ML IV SCH ×2 (09:08→17:10)
[2020-10-06] MEDS: INSULIN GLARGINE 100 UNIT/ML SUBCUT SCH (09:20)
[2020-10-06 09:56] LABS: INR 1.6
[2020-10-06] MEDS: carvediloL 12.5 MG TABLET PO SCH ×2 (13:22→17:39)
[2020-10-06] MEDS: MEMANTINE 10 MG TABLET PO SCH ×2 (13:22→21:32)
[2020-10-06] MEDS: ATORVASTATIN 20 MG TABLET PO SCH (13:22)
[2020-10-06] MEDS: QUEtiapine 25 MG TABLET PO SCH ×2 (13:23→21:32)
[2020-10-06] MEDS: CYANOCOBALAMIN 500 MCG TABLET PO SCH (13:23)
[2020-10-06] MEDS: MULTIVITAMIN (OCUVITE) TABLET PO SCH ×2 (13:23→21:32)
[2020-10-06] MEDS: DIGOXIN 0.125 MG TABLET PO SCH (14:42)
[2020-10-06] MEDS: WARFARIN 2.5 MG TABLET PO SCH (17:46)
[2020-10-06] MEDS ORDERED: WARFARIN 2.5 MG TABLET PO SCH (18:00)
[2020-10-07] MEDS: INSULIN LISPRO 100 UNIT/ML SUBCUT SCH ×4 (01:13→18:49)
[2020-10-07 05:57] LABS: Basophils % 0.3 % (0.0-0.8); Eosinophils # 0.2 10*3/uL (0.0-0.87); Eosinophils % 2.4 % (0.00-10.9); Hematocrit 47.1 VOL% (42.0-52.0); Hemoglobin 15.2 GM/DL (14.0-18.0); Immature Granulocytes % 0.5 %; Immature Granulocytes Absolute 0.05 #; Lymphocytes # 0.9 10*3/uL (1.4-4.0); Lymphocytes % 9.2 % (21.2-54.2); Mean Corpuscular HGB Conc 32.3 GM/DL (32-36); Mean Corpuscular Volume 99.8 FL (87-102); Mean Platelet Volume 13.7 FL (9.6-12.0); Monocytes % 5.1 % (1.7-12.7); Neutrophils % 82.5 % (38.7-73.9); Platelet Count 119 T/CUMM (130-400); Red Blood Count 4.72 MC/CUMM (3.8-5.5); Red Cell Distribution Width 12.5 % (9.3-17.3); White Blood Count 9.7 T/CUMM (4-12)
[2020-10-07 06:13] LABS: INR 1.5; PT Patient Result 16.2 SECS (9.8-11.9)
[2020-10-07 06:35] LABS: Folate 10.1 NG/ML (5.38-24.0)
[2020-10-07 06:40] LABS: Albumin 2.8 G/DL (3.4-5.0); Calcium 8.6 MG/DL (8.5-10.1); Osmolality,Calculated 333.7 MOS/KG (273-304); Potassium 3.8 MMOL/L (3.5-5.1); Total Protein 6.7 G/DL (6.4-8.3)
[2020-10-07] MEDS: carvediloL 12.5 MG TABLET PO SCH ×2 (09:43→17:43)
[2020-10-07] MEDS: INSULIN GLARGINE 100 UNIT/ML SUBCUT SCH (09:43)
[2020-10-07] MEDS: ATORVASTATIN 20 MG TABLET PO SCH (09:44)
[2020-10-07] MEDS: MULTIVITAMIN (OCUVITE) TABLET PO SCH ×2 (09:44→21:55)
[2020-10-07] MEDS: CYANOCOBALAMIN 500 MCG TABLET PO SCH (09:44)
[2020-10-07] MEDS: QUEtiapine 25 MG TABLET PO SCH ×2 (09:44→21:55)
[2020-10-07] MEDS: MEMANTINE 10 MG TABLET PO SCH ×2 (09:44→21:55)
[2020-10-07] MEDS: DEXTROSE 5% 1,000 ML IV SCH (09:51)
[2020-10-07] MEDS: DIGOXIN 0.125 MG TABLET PO SCH (14:28)
[2020-10-07 15:27] LABS: Calcium 8.4 MG/DL (8.5-10.1); Osmolality,Calculated 335.6 MOS/KG (273-304)
[2020-10-07] MEDS: WARFARIN 2.5 MG TABLET PO SCH (17:29)
[2020-10-07] MEDS ORDERED: WARFARIN 5 MG TABLET PO SCH (18:00)
[2020-10-08] MEDS: DEXTROSE 5% 1,000 ML IV SCH ×4 (01:01→23:30)
[2020-10-08] MEDS: INSULIN LISPRO 100 UNIT/ML SUBCUT SCH ×5 (01:06→21:19)
[2020-10-08] MEDS: LEVOTHYROXINE 100 MCG TABLET PO SCH ×2 (01:31→06:28)
[2020-10-08 06:16] LABS: INR 1.4; PT Patient Result 14.7 SECS (9.8-11.9)
[2020-10-08 06:21] LABS: Osmolality,Calculated 327.4 MOS/KG (273-304); Potassium 3.7 MMOL/L (3.5-5.1)
[2020-10-08 06:36] LABS: Basophils % 0.3 % (0.0-0.8); Eosinophils # 0.1 10*3/uL (0.0-0.87); Eosinophils % 1.3 % (0.00-10.9); Hematocrit 44.9 VOL% (42.0-52.0); Immature Granulocytes % 0.6 %; Immature Granulocytes Absolute 0.06 #; Mean Corpuscular HGB Conc 31.2 GM/DL (32-36); Mean Corpuscular Volume 100.2 FL (87-102); Mean Platelet Volume 13.9 FL (9.6-12.0); Monocytes % 5.1 % (1.7-12.7); Neutrophils % 82.7 % (38.7-73.9); Platelet Count 101 T/CUMM (130-400); Red Blood Count 4.48 MC/CUMM (3.8-5.5); Red Cell Distribution Width 12.7 % (9.3-17.3); White Blood Count 9.5 T/CUMM (4-12)
[2020-10-08] MEDS: ATORVASTATIN 20 MG TABLET PO SCH (10:01)
[2020-10-08] MEDS: carvediloL 12.5 MG TABLET PO SCH ×2 (10:01→17:20)
[2020-10-08] MEDS: QUEtiapine 25 MG TABLET PO SCH ×2 (10:02→21:11)
[2020-10-08] MEDS: MEMANTINE 10 MG TABLET PO SCH ×2 (10:02→21:20)
[2020-10-08] MEDS: CYANOCOBALAMIN 500 MCG TABLET PO SCH (10:02)
[2020-10-08] MEDS: MULTIVITAMIN (OCUVITE) TABLET PO SCH ×2 (10:02→21:20)
[2020-10-08] MEDS: INSULIN GLARGINE 100 UNIT/ML SUBCUT SCH (10:03)
[2020-10-08] MEDS: DIGOXIN 0.125 MG TABLET PO SCH (14:17)
[2020-10-08 15:23] LABS: Band Neutrophils 3 % (0-10); Eosinophils 2 % (0-10); Lymphocytes 6 % (20-55); Platelet Estimate Adequate; Segmented Neutrophils 87 % (50-85); Total Cells Counted 100
[2020-10-08] MEDS ORDERED: WARFARIN 5 MG TABLET PO SCH (18:00)
[2020-10-09] MEDS: LEVOTHYROXINE 100 MCG TABLET PO SCH (06:40)
[2020-10-09 08:23] LABS: Basophils % 0.2 % (0.0-0.8); Eosinophils # 0.1 10*3/uL (0.0-0.87); Eosinophils % 1.6 % (0.00-10.9); Hematocrit 41.8 VOL% (42.0-52.0); Hemoglobin 13.7 GM/DL (14.0-18.0); Immature Granulocytes % 0.6 %; Immature Granulocytes Absolute 0.05 #; Lymphocytes % 12.3 % (21.2-54.2); Mean Corpuscular HGB Conc 32.8 GM/DL (32-36); Mean Corpuscular Volume 98.6 FL (87-102); Mean Platelet Volume 13.7 FL (9.6-12.0); Monocytes % 4.7 % (1.7-12.7); Neutrophils % 80.6 % (38.7-73.9); Red Blood Count 4.24 MC/CUMM (3.8-5.5); Red Cell Distribution Width 12.4 % (9.3-17.3); White Blood Count 8.1 T/CUMM (4-12)
[2020-10-09 08:26] LABS: Platelet Count 89 T/CUMM (130-400)
[2020-10-09] MEDS: INSULIN LISPRO 100 UNIT/ML SUBCUT SCH ×4 (08:34→20:47)
[2020-10-09 08:37] LABS: INR 1.4; PT Patient Result 14.8 SECS (9.8-11.9)
[2020-10-09] MEDS: carvediloL 12.5 MG TABLET PO SCH ×2 (08:41→16:12)
[2020-10-09] MEDS: QUEtiapine 25 MG TABLET PO SCH ×2 (08:42→21:12)
[2020-10-09 08:51] LABS: Calcium 8.2 MG/DL (8.5-10.1); Osmolality,Calculated 310.3 MOS/KG (273-304); Potassium 3.8 MMOL/L (3.5-5.1)
[2020-10-09 09:04] LABS: Platelet Estimate Decreased
[2020-10-09 09:05] LABS: Anisocytosis Slight; Macrocytosis Slight
[2020-10-09] MEDS: CYANOCOBALAMIN 500 MCG TABLET PO SCH (09:09)
[2020-10-09] MEDS: MULTIVITAMIN (OCUVITE) TABLET PO SCH ×2 (09:09→20:46)
[2020-10-09] MEDS: MEMANTINE 10 MG TABLET PO SCH ×2 (09:09→20:46)
[2020-10-09] MEDS: ATORVASTATIN 20 MG TABLET PO SCH (09:09)
[2020-10-09] MEDS: INSULIN GLARGINE 100 UNIT/ML SUBCUT SCH (09:10)
[2020-10-09] MEDS: DEXTROSE 5% 1,000 ML IV SCH ×2 (12:45→22:26)
[2020-10-09] MEDS: DIGOXIN 0.125 MG TABLET PO SCH (13:03)
[2020-10-09] MEDS: WARFARIN 2.5 MG TABLET PO SCH (17:22)
[2020-10-10] MEDS: LEVOTHYROXINE 100 MCG TABLET PO SCH (05:38)
[2020-10-10 05:39] LABS: Basophils % 0.3 % (0.0-0.8); Eosinophils # 0.2 10*3/uL (0.0-0.87); Eosinophils % 3.2 % (0.00-10.9); Hematocrit 39.9 VOL% (42.0-52.0); Hemoglobin 13.4 GM/DL (14.0-18.0); Immature Granulocytes % 0.8 %; Immature Granulocytes Absolute 0.05 #; Lymphocytes % 16.6 % (21.2-54.2); Mean Corpuscular HGB Conc 33.6 GM/DL (32-36); Mean Corpuscular Volume 97.6 FL (87-102); Mean Platelet Volume 13.5 FL (9.6-12.0); Monocytes % 5.2 % (1.7-12.7); Neutrophils % 73.9 % (38.7-73.9); Platelet Count 89 T/CUMM (130-400); Red Blood Count 4.09 MC/CUMM (3.8-5.5); Red Cell Distribution Width 12.1 % (9.3-17.3); White Blood Count 6.2 T/CUMM (4-12)
[2020-10-10 06:06] LABS: Platelet Estimate Decreased
[2020-10-10 06:07] LABS: Anisocytosis Slight; Burr Cells Few
[2020-10-10 06:08] LABS: Calcium 8.1 MG/DL (8.5-10.1); Osmolality,Calculated 297.1 MOS/KG (273-304); Potassium 3.7 MMOL/L (3.5-5.1)
[2020-10-10 07:25] LABS: INR 1.4; PT Patient Result 15.2 SECS (9.8-11.9)
[2020-10-10] MEDS: INSULIN LISPRO 100 UNIT/ML SUBCUT SCH ×4 (08:52→20:34)
[2020-10-10] MEDS: MEMANTINE 10 MG TABLET PO SCH ×2 (08:53→20:34)
[2020-10-10] MEDS: MULTIVITAMIN (OCUVITE) TABLET PO SCH ×2 (08:53→20:33)
[2020-10-10] MEDS: CYANOCOBALAMIN 500 MCG TABLET PO SCH (08:53)
[2020-10-10] MEDS: ATORVASTATIN 20 MG TABLET PO SCH (08:53)
[2020-10-10] MEDS: INSULIN GLARGINE 100 UNIT/ML SUBCUT SCH (08:53)
[2020-10-10] MEDS: QUEtiapine 25 MG TABLET PO SCH ×2 (08:54→21:45)
[2020-10-10] MEDS: carvediloL 12.5 MG TABLET PO SCH ×2 (08:54→17:48)
[2020-10-10] MEDS: DEXTROSE 5% 1,000 ML IV SCH (08:56)
[2020-10-10] MEDS: DIGOXIN 0.125 MG TABLET PO SCH (14:20)
[2020-10-10] MEDS: SODIUM CHLORIDE 0.45% 1,000 ML IV SCH (15:00)
[2020-10-10] MEDS: WARFARIN 2.5 MG TABLET PO SCH (17:48)
[2020-10-11] MEDS: SODIUM CHLORIDE 0.45% 1,000 ML IV SCH (04:40)
[2020-10-11 05:45] LABS: Basophils % 0.3 % (0.0-0.8); Eosinophils # 0.1 10*3/uL (0.0-0.87); Hematocrit 38.3 VOL% (42.0-52.0); Hemoglobin 12.7 GM/DL (14.0-18.0); Immature Granulocytes % 0.7 %; Immature Granulocytes Absolute 0.05 #; Lymphocytes # 1.1 10*3/uL (1.4-4.0); Lymphocytes % 15.4 % (21.2-54.2); Mean Corpuscular HGB Conc 33.2 GM/DL (32-36); Mean Corpuscular Volume 96.2 FL (87-102); Mean Platelet Volume 13.7 FL (9.6-12.0); Monocytes % 5.3 % (1.7-12.7); Neutrophils % 76.3 % (38.7-73.9); Platelet Count 101 T/CUMM (130-400); Red Blood Count 3.98 MC/CUMM (3.8-5.5); Red Cell Distribution Width 11.9 % (9.3-17.3)
[2020-10-11 05:57] LABS: Osmolality,Calculated 286.3 MOS/KG (273-304)
[2020-10-11 06:06] LABS: Eosinophils 1 % (0-10); Lymphocytes 27 % (20-55); Segmented Neutrophils 70 % (50-85); Total Cells Counted 100
[2020-10-11 06:07] LABS: Hypochromasia Slight; Microcytosis Slight; Platelet Estimate Decreased
[2020-10-11] MEDS: LEVOTHYROXINE 100 MCG TABLET PO SCH (06:24)
[2020-10-11 09:39] LABS: INR 1.4; PT Patient Result 14.9 SECS (9.8-11.9)
[2020-10-11] MEDS: QUEtiapine 25 MG TABLET PO SCH ×2 (11:07→22:05)
[2020-10-11] MEDS: ATORVASTATIN 20 MG TABLET PO SCH (11:07)
[2020-10-11] MEDS: carvediloL 12.5 MG TABLET PO SCH ×2 (11:08→17:15)
[2020-10-11] MEDS: MEMANTINE 10 MG TABLET PO SCH ×2 (11:08→22:05)
[2020-10-11] MEDS: CYANOCOBALAMIN 500 MCG TABLET PO SCH (11:08)
[2020-10-11] MEDS: MULTIVITAMIN (OCUVITE) TABLET PO SCH ×2 (11:08→22:05)
[2020-10-11] MEDS: INSULIN ASPART PROTAMINE/ASPART 70/30 100 UNIT/ML SUBCUT SCH ×2 (11:09→17:14)
[2020-10-11] MEDS: INSULIN LISPRO 100 UNIT/ML SUBCUT SCH ×4 (11:36→22:06)
[2020-10-11] MEDS: INSULIN GLARGINE 100 UNIT/ML SUBCUT SCH (12:59)
[2020-10-11] MEDS: DIGOXIN 0.125 MG TABLET PO SCH (14:39)
[2020-10-11] MEDS ORDERED: WARFARIN 5 MG TABLET PO SCH (18:00)
[2020-10-12 03:29] LABS: INR 1.4; PT Patient Result 15.1 SECS (9.8-11.9)
[2020-10-12] MEDS: LEVOTHYROXINE 100 MCG TABLET PO SCH (05:18)
[2020-10-12] MEDS: carvediloL 12.5 MG TABLET PO SCH ×2 (08:29→16:30)
[2020-10-12] MEDS: MEMANTINE 10 MG TABLET PO SCH ×2 (08:29→21:37)
[2020-10-12] MEDS: INSULIN ASPART PROTAMINE/ASPART 70/30 100 UNIT/ML SUBCUT SCH ×2 (08:29→16:40)
[2020-10-12] MEDS: ATORVASTATIN 20 MG TABLET PO SCH (08:29)
[2020-10-12] MEDS: INSULIN LISPRO 100 UNIT/ML SUBCUT SCH ×4 (08:29→21:37)
[2020-10-12] MEDS: QUEtiapine 25 MG TABLET PO SCH ×2 (08:30→21:37)
[2020-10-12] MEDS: CYANOCOBALAMIN 500 MCG TABLET PO SCH (08:30)
[2020-10-12] MEDS: MULTIVITAMIN (OCUVITE) TABLET PO SCH ×2 (08:30→21:37)
[2020-10-12] MEDS: DIGOXIN 0.125 MG TABLET PO SCH (12:13)
[2020-10-12] MEDS ORDERED: WARFARIN 2.5 MG TABLET PO SCH (18:00)
[2020-10-12] MEDS ORDERED: WARFARIN 5 MG TABLET PO SCH (18:00)
[2020-10-12] MEDS ORDERED: WARFARIN 3 MG TABLET PO SCH (18:00)
[2020-10-12] MEDS ORDERED: WARFARIN 4 MG TABLET PO SCH (18:00)
[2020-10-13 05:30] LABS: INR 1.4; PT Patient Result 15.1 SECS (9.8-11.9)
[2020-10-13 05:42] LABS: Calcium 8.6 MG/DL (8.5-10.1); Potassium 3.9 MMOL/L (3.5-5.1)
[2020-10-13] MEDS: LEVOTHYROXINE 100 MCG TABLET PO SCH (05:53)
[2020-10-13] MEDS: carvediloL 12.5 MG TABLET PO SCH ×2 (09:56→18:03)
[2020-10-13] MEDS: QUEtiapine 25 MG TABLET PO SCH ×2 (09:56→21:32)
[2020-10-13] MEDS: MEMANTINE 10 MG TABLET PO SCH ×2 (09:56→21:32)
[2020-10-13] MEDS: ATORVASTATIN 20 MG TABLET PO SCH (09:57)
[2020-10-13] MEDS: CYANOCOBALAMIN 500 MCG TABLET PO SCH (09:57)
[2020-10-13] MEDS: MULTIVITAMIN (OCUVITE) TABLET PO SCH ×2 (09:57→21:32)
[2020-10-13] MEDS: INSULIN ASPART PROTAMINE/ASPART 70/30 100 UNIT/ML SUBCUT SCH ×2 (09:58→18:03)
[2020-10-13] MEDS: INSULIN LISPRO 100 UNIT/ML SUBCUT SCH ×4 (10:38→21:33)
[2020-10-13] MEDS: DIGOXIN 0.125 MG TABLET PO SCH (14:42)
[2020-10-13] MEDS ORDERED: WARFARIN 5 MG TABLET PO SCH (18:00)
[2020-10-13] MEDS: WARFARIN 5 MG TABLET PO SCH (18:50)
[2020-10-14 04:37] LABS: INR 2.1
[2020-10-14 04:47] LABS: PT Patient Result 21.4 SECS (9.8-11.9)
[2020-10-14] MEDS: LEVOTHYROXINE 100 MCG TABLET PO SCH (05:58)
[2020-10-14] MEDS: INSULIN LISPRO 100 UNIT/ML SUBCUT SCH ×4 (08:58→21:20)
[2020-10-14] MEDS: INSULIN ASPART PROTAMINE/ASPART 70/30 100 UNIT/ML SUBCUT SCH ×2 (08:58→17:31)
[2020-10-14] MEDS: CYANOCOBALAMIN 500 MCG TABLET PO SCH (08:59)
[2020-10-14] MEDS: QUEtiapine 25 MG TABLET PO SCH (08:59)
[2020-10-14] MEDS: MULTIVITAMIN (OCUVITE) TABLET PO SCH ×2 (08:59→21:10)
[2020-10-14] MEDS: ATORVASTATIN 20 MG TABLET PO SCH (08:59)
[2020-10-14] MEDS: MEMANTINE 10 MG TABLET PO SCH ×2 (08:59→21:10)
[2020-10-14] MEDS: carvediloL 12.5 MG TABLET PO SCH ×2 (08:59→17:30)
[2020-10-14] MEDS ORDERED: TUBERCULIN SKIN TEST 0.1 ML SYRINGE INTRADERM ONE (11:41)
[2020-10-14] MEDS: DIGOXIN 0.125 MG TABLET PO SCH (15:08)
[2020-10-14] MEDS: WARFARIN 5 MG TABLET PO SCH (17:30)
[2020-10-15] MEDS: QUEtiapine 25 MG TABLET PO SCH ×2 (01:06→09:39)
[2020-10-15] MEDS: LEVOTHYROXINE 100 MCG TABLET PO SCH (06:22)
[2020-10-15 06:47] LABS: Basophils % 0.3 % (0.0-0.8); Eosinophils # 0.1 10*3/uL (0.0-0.87); Eosinophils % 2.2 % (0.00-10.9); Hematocrit 38.8 VOL% (42.0-52.0); Hemoglobin 12.3 GM/DL (14.0-18.0); Immature Granulocytes % 0.5 %; Immature Granulocytes Absolute 0.03 #; Lymphocytes # 0.8 10*3/uL (1.4-4.0); Lymphocytes % 13.5 % (21.2-54.2); Mean Corpuscular HGB Conc 31.7 GM/DL (32-36); Mean Corpuscular Volume 99.7 FL (87-102); Mean Platelet Volume 12.3 FL (9.6-12.0); Monocytes % 5.8 % (1.7-12.7); Neutrophils % 77.7 % (38.7-73.9); Platelet Count 178 T/CUMM (130-400); Red Blood Count 3.89 MC/CUMM (3.8-5.5); Red Cell Distribution Width 12.3 % (9.3-17.3)
[2020-10-15 06:52] LABS: INR 1.6
[2020-10-15 07:01] LABS: Osmolality,Calculated 292.7 MOS/KG (273-304); Potassium 4.2 MMOL/L (3.5-5.1)
[2020-10-15] MEDS: MULTIVITAMIN (OCUVITE) TABLET PO SCH (09:18)
[2020-10-15] MEDS: MEMANTINE 10 MG TABLET PO SCH (09:18)
[2020-10-15] MEDS: INSULIN ASPART PROTAMINE/ASPART 70/30 100 UNIT/ML SUBCUT SCH (09:18)
[2020-10-15] MEDS: ATORVASTATIN 20 MG TABLET PO SCH (09:19)
[2020-10-15] MEDS: CYANOCOBALAMIN 500 MCG TABLET PO SCH (09:19)
[2020-10-15] MEDS: carvediloL 12.5 MG TABLET PO SCH (09:38)
[2020-10-15] MEDS: INSULIN LISPRO 100 UNIT/ML SUBCUT SCH ×2 (09:38→12:30)
[2020-10-15 11:49] VITALS: BP 108/68
[2020-10-15] MEDS: DIGOXIN 0.125 MG TABLET PO SCH (12:31)
== END 2020-10-15 13:33 | disposition swing bed (61) | DRG 682 ==
LOC: EDBD → EDUNIT# → N.ED 15:52 → SUATTDRO 21:40 → N.EDINP 21:40 → N.3E 23:56
PROVIDERS: ADMIT Internal Medicine; ATTEND Internal Medicine